=== PATIENT | female | born 1945 | race Two or more races ===

== ENCOUNTER 2020-09-25 17:39 | Inpatient (IN) ==
[2020-09-25 18:49] LABS: Basophils # (auto) 0.02 K/uL (0-0.2); Basophils % (auto) 0.2 %; Eosinophils # (auto) 0.26 K/uL (0-0.5); Eosinophils % (auto) 2.7 %; Immature Granulocytes # (auto) 0.03 K/uL (0.00-0.02); Immature Granulocytes % (auto) 0.3 %; Lymphocytes # (auto) 2.32 K/uL (1.2-3.4); Lymphocytes % (auto) 23.8 %; Mean Corpuscular Hemoglobin 26.4 pg (25-34); Mean Corpuscular Hgb Conc 33.3 g/dL (32-36); Mean Corpuscular Volume 79.1 fL (80-100); Mean Platelet Volume 11.3 fL (7.4-10.4); Monocytes # (auto) 0.79 K/uL (0.11-0.59); Monocytes % (auto) 8.1 %; Neutrophils # (auto) 6.34 K/uL (1.4-6.5); Neutrophils % (auto) 64.9 %; Platelet Count 208 K/uL (130-400); RDW Coefficient of Variation 13.2 % (11.5-14.5); RDW Standard Deviation 37.7 fL (36.4-46.3); Red Blood Count 4.93 M/uL (4.2-5.4); White Blood Count 9.76 K/uL (4.8-10.8)
[2020-09-25 19:16] LABS: Albumin Level 3.2 gm/dl (3.4-5.0); BUN Creatinine Ratio 19.3 (10-20); Bilirubin,Total 0.4 mg/dl (0.2-1); Calcium 5.4 mg/dl (8.5-10.1); Creatinine Clr Calc Pharmacy 73.7 ml/min; Est GFR (African American) 97.9 ml/min; Est GFR (Non-African American) 84.5 ml/min; Globulin 3.3 gm/dl (2.5-4.0); Potassium 3.3 mmol/L (3.5-5.1); Total Protein 6.5 gm/dl (6.4-8.2)
[2020-09-25] MEDS ORDERED: CALCIUM GLUCONATE 10% 2,000 MG in SODIUM CHLORIDE 0.9% 50 ML IV ONE (19:18)
--- NOTE | 2020-09-25 19:35 | Emergency Department Note ---
Impression & Plan Hypocalcemia ED Provider Note INFORMANT: Patient ED PROVIDER(S): Buzz Ann MD CHIEF COMPLAINT: Abnormal labs PLAN: Disposition: Admitted Condition: Good Outpatient prescription management: none Referral: None MEDICAL DECISION MAKING: Patient presented to the emergency department complaining of abnormal labs. She speaks Tajik but her daughter is present and translates well. The patient is without complaints other than some cramping noted in her arms. The twelve-lead ECG reveals a atrial fibrillation with right bundle branch block at 81 bpm. Patient's CBC and chemistry panel were rather unremarkable except she had profound hypocalcemia. I discussed the patient's findings with the pharmacist and 2 g of calcium gluconate and 50 mL of D5W was recommended. This infusion was began. She will need further management in the hospital due to the severe hypocalcemia. [facility] Patient was evaluated in the ER admitted for further management. Triage Nursing notes reviewed and agree them. Vital Signs: reviewed and remarkable for no significant abnormalities Differential diagnosis: Hypocalcemia, infection, dehydration, metabolic abnormality, hypo/hyperglycemia, electrolyte disturbance, anemia, hypoxia, cardiac sources, intracerebral event, toxicologic, neurologic, as well as other pathologies. Diagnostics interpreted by me: ECG: Twelve-lead ECG reveals atrial fibrillation at 81 bpm. Right bundle branch block. No ST elevation or depression. No PVCs or PACs. Normal axis. Cardiac Monitoring: Cardiac monitoring ordered by me: The patient was placed on continuous cardiac monitoring and observed. It revealed atrial fibrillation at 74 beats per minute without ectopy or evidence of dysrhythmia. Imaging studies: Deferred HPI: The patient is a 75 year old female who presents to the Emergency Room with complaints of abnormal labs, low calcium. This started today and is the result of routine postoperative labs. The patient had her thyroid removed in July. She was taking thyroid and calcium supplements. She stopped her calcium supplements because she was having surgery again on her neck 12 days ago. Labs were done and she was found to be profoundly hypocalcemic and sent to the ER. The patient also notes the following associated symptoms, muscle cramps. The patient has been prescribed no new medication for relieving factors. Current pain is rated as 0/10. Pt denies LOC, headache, fevers, chills, diaphoresis, visual changes, surgical site problems or new neck pain, chest pain, breathing difficulties, nausea, vomiting, abdominal pain, back pain, urinary symptoms, numbness, weakness, rash, or other complaints. ROS: See above HPI for pertinent positives & negatives. A total of 10 systems reviewed and were otherwise negative. PAST MEDICAL HISTORY:See Below , hypertension PAST SURGICAL HISTORY:See Below, thyroidectomy FAMILY HISTORY:See Below SOCIAL HISTORY:See Below, lives with family, Tajik speaking HOME MEDICATIONS:See Below ALLERGIES:See Below VITALS:See Below PHYSICAL EXAMINATION: GENERAL: Awake, alert, well-appearing, in no distress HENT: Normocephalic, atraumatic. Oropharynx unremarkable. EYES: Normal conjunctiva. Sclera non-icteric. NECK: Inspection normal. Non-tender. Supple. No nuchal rigidity. FROM. No masses. Surgical site healing well. RESPIRATORY: Clear to auscultation. No wheezes. No rales. Normal respiratory e ffort. CARDIAC: Normal rate. Normal rhythm. No murmurs. No rubs. Extremities warm and well perfused. Pulses equal. No JVD. GI: Soft, non-distended. No tenderness to palpation. No rebound or guarding. No masses. RECTAL: Deferred. MUSCULOSKELETAL: Atraumatic. Chest examination reveals no tenderness. The back is symmetrical on inspection without obvious abnormality. There is no CVA tenderness to palpation. No joint edema. LOWER EXTREMITIES: Calves are equal size bilaterally and non-tender. No edema. No discoloration. NEURO: Normal sensorium. No sensory or motor deficits noted. Negative Chvo stek's sign. SKIN: No rash or jaundice noted. Buzz Ann MD Past Med/Surg History Medical History (Updated 09/25/20 @ 19:32 by Buzz Ann MD) Atrial fibrillation CVA (cerebral vascular accident) 2008 - Right Sided Weakness History of breast cancer Diagnosed 07/26/18 - Right Breast DCIS Hypertension Prediabetes Primary open angle glaucoma (POAG) of both eyes, mild stage Surgical History History of appendectomy 1989 History of hysterectomy 1987 History of left cataract surgery 2016 - Complex History of lumpectomy of right breast 08/17/18 Family History Mother , Passed age 75 of "heart" No problems noted. Father , Passed age 91 of kidney failure No problems noted. Sister No problems noted. Sister No problems noted. Sister No problems noted. Sister No problems noted. Sister No problems noted. Sister No problems noted. Brother , Passed age 35 of "something in neck" not cancer - very sudden No problems noted. Brother , Passed age 20 at war No problems noted. Daughter No problems noted. Daughter No problems noted. Son No problems noted. Son No problems noted. Social History Smoking Status: Never smoker packs per day: 1; Years Smoked: 10; Number of Years Since Quit: 15; Hx Alcohol Use: No Hx Substance Use: No Preferred Language: Tajik Communication Ability: Unable Visual Impairment: Limited Hearing Ability: Normal In Service Education Teacher Required: No Beliefs That Will Affect Care: None marital status: / Current Living Situation: Family current occupational status: retired current occupation: Retired Teacher Feels Safe at Home: Yes caffeine: Yes (1/2 cup of urdu coffee/day ) during the past year weight has: remained stable Dental Care, Regularly: Yes Allergies Allergies Allergy/AdvReac Type Severity Reaction Status Date / Time Sulfa (Sulfonamide AdvReac Severe Anaphylaxis Verified 09/25/20 19:43 Antibiotics) Home Meds Home Medications Medication Instructions Recorded Confirmed cyclobenzaprine 5 mg tablet 5 mg PO TID PRN 09/06/18 09/25/20 latanoprost 0.005 % eye drops 1 drops OPB QPM 09/06/18 09/25/20 anastrozole 1 mg tablet 1 mg PO DAILY 12/27/19 09/25/20 cephalexin 500 mg PO QID 09/25/20 09/25/20 dabigatran etexilate [Pradaxa] 150 mg PO BID 09/25/20 09/25/20 levothyroxine 125 mcg PO QAM 09/25/20 09/25/20 Previous Rx's Medication Instructions Recorded hydrochlorothiazide 25 mg tablet 12.5 mg PO DAILY #90 tab 07/25/20 losartan 25 mg tablet 25 mg PO DAILY #90 tab 09/24/20 Results & Data (ED) Vital Signs Vital Signs - 24 hr 09/25/20 17:47 09/25/20 19:04 09/25/20 21:59 Temperature 37.2 C Temperature Source Oral Pulse Rate 81 Pulse Rate [Apical] 74 Respiratory Rate 20 18 Respiratory Effort / Characteristics Non-Labored Spontaneous Non-Labored Spontaneous Respiratory Depth Normal Normal Respiratory Pattern Regular Blood Pressure 115/63 Blood Pressure [Right Arm] 114/62 Blood Pressure Mean 80 Blood Pressure Mean [Right Arm] 79 Pulse Oximetry 96 97 97 Oxygen Delivery Method Room Air Room Air Room Air Sepsis Recent Fever Within 48 Hours No Sepsis New/Unexplained Change in Mental Status N/A Sepsis Action Taken by Nursing No Action Required Laboratory Data Result diagrams: 09/25/20 18:35 09/25/20 18:35 Lab Results 09/25/20 09/25/20 09/25/20 Range/Units 18:35 18:35 19:26 WBC 9.76 (4.8-10.8) K/uL RBC 4.93 (4.2-5.4) M/uL Hgb 13.0 (12.0-16.0) g/dL Hct 39.0 (37-47) % MCV 79.1 L (80-100) fL MCH 26.4 (25-34) pg MCHC 33.3 (32-36) g/dL RDW Std Deviation 37.7 (36.4-46.3) fL RDW Coeff of Annabella 13.2 (11.5-14.5) % Plt Count 208 (130-400) K/uL MPV 11.3 H (7.4-10.4) fL Immature Gran % (Auto) 0.3 % Neut % (Auto) 64.9 % Lymph % (Auto) 23.8 % [place] % (Auto) 8.1 % Eos % (Auto) 2.7 % Baso % (Auto) 0.2 % Neut # (Auto) 6.34 (1.4-6.5) K/uL Lymph # (Auto) 2.32 (1.2-3.4) K/uL [place] # (Auto) 0.79 H (0.11-0.59) K/uL Eos # (Auto) 0.26 (0-0.5) K/uL Baso # (Auto) 0.02 (0-0.2) K/uL Immature Gran # (Auto) 0.03 H (0.00-0.02) K/uL Sodium 142 (136-145) mmol/L Potassium 3.3 L (3.5-5.1) mmol/L Chloride 105 (98-107) mmol/L Carbon Dioxide 31 (21-32) mmol/L Anion Gap 6.0 (3-11) BUN 14 (7-18) mg/dl Creatinine 0.71 (0.6-1.2) mg/dl Est Cr Clr Drug Dosing 73.7 ml/min Est GFR ( Amer) 97.9 ml/min Est GFR (Non-Af Amer) 84.5 ml/min BUN/Creatinine Ratio 19.3 (10-20) Glucose 114 H (70-99) mg/dl Calcium 5.4 L* (8.5-10.1) mg/dl Total Bilirubin 0.4 (0.2-1) mg/dl AST 20 (15-37) U/L ALT 30 (12-78) U/L Alkaline Phosphatase 70 (45-117) U/L Total Protein 6.5 (6.4-8.2) gm/dl Albumin 3.2 L (3.4-5.0) gm/dl Globulin 3.3 (2.5-4.0) gm/dl Albumin/Globulin Ratio 1.0 (0.9-2) COVID-19 Eval Order Covid19 at [facility] SARS-CoV-2 (PCR) (Negative) 09/25/20 Range/Units 19:26 WBC (4.8-10.8) K/uL RBC (4.2-5.4) M/uL Hgb (12.0-16.0) g/dL Hct (37-47) % MCV (80-100) fL MCH (25-34) pg MCHC (32-36) g/dL RDW Std Deviation (36.4-46.3) fL RDW Coeff of Annabella (11.5-14.5) % Plt Count (130-400) K/uL MPV (7.4-10.4) fL Immature Gran % (Auto) % Neut % (Auto) % Lymph % (Auto) % [place] % (Auto) % Eos % (Auto) % Baso % (Auto) % Neut # (Auto) (1.4-6.5) K/uL Lymph # (Auto) (1.2-3.4) K/uL [place] # (Auto) (0.11-0.59) K/uL Eos # (Auto) (0-0.5) K/uL Baso # (Auto) (0-0.2) K/uL Immature Gran # (Auto) (0.00-0.02) K/uL Sodium (136-145) mmol/L Potassium (3.5-5.1) mmol/L Chloride (98-107) mmol/L Carbon Dioxide (21-32) mmol/L Anion Gap (3-11) BUN (7-18) mg/dl Creatinine (0.6-1.2) mg/dl Est Cr Clr Drug Dosing ml/min Est GFR ( Amer) ml/min Est GFR (Non-Af Amer) ml/min BUN/Creatinine Ratio (10-20) Glucose (70-99) mg/dl Calcium (8.5-10.1) mg/dl Total Bilirubin (0.2-1) mg/dl AST (15-37) U/L ALT (12-78) U/L Alkaline Phosphatase (45-117) U/L Total Protein (6.4-8.2) gm/dl Albumin (3.4-5.0) gm/dl Globulin (2.5-4.0) gm/dl Albumin/Globulin Ratio (0.9-2) COVID-19 Eval Order SARS-CoV-2 (PCR) NEGATIVE (Negative) Administered Medications Discontinued Medications Calcium Gluconate 2,000 mg/ (Sodium Chloride) 70 mls @ 240 mls/hr IV NOW ONE Stop: 09/25/20 19:35 Last Infusion: 09/25/20 20:00 Dose: 0 mls/hr Documented by: [id number] Admin: 09/25/20 19:45 Dose: 240 mls/hr Documented by: [id number] Potassium Chloride (Potassium Chloride Crtab 20 Meq Tabcr) 40 meq PO NOW STA Stop: 09/25/20 20:59 Last Admin: 09/25/20 21:37 Dose: 40 meq Documented by: [id number] Discharge Plan Visit Data Chief Complaint: Abnormal Labs/Diagnostic Testing Stated Complaint: ABNORMAL LABS, LOW CALCIUM ED Provider: Buzz Ann Discharge Problem: Hypocalcemia Patient Disposition: Admitted As Inpatient Discharge Instructions Interventions: ED Discharge Assessment Last Done: 09/25/20 22:02
[2020-09-25] MEDS ORDERED: POTASSIUM CHLORIDE CRTAB 20 MEQ TABCR PO STA (20:58)
[2020-09-25] MEDS ORDERED: SODIUM CHLORIDE 0.9% 1000ML 1,000 ML IV SCH (22:37)
[2020-09-25] MEDS ORDERED: NITROGLYCERIN SL 0.4 MG/TAB TAB SL PRN (22:37)
[2020-09-25] MEDS ORDERED: ACETAMINOPHEN 325 MG TAB PO PRN (22:37)
[2020-09-25] MEDS ORDERED: CYCLOBENZAPRINE HCL 5 MG TAB PO PRN (22:37)
--- NOTE | 2020-09-25 22:50 | History and Physical Report ---
DATE OF ADMISSION: 09/25/2020. CHIEF COMPLAINT: She is from [place], presents with hypocalcemia. HISTORY OF PRESENT ILLNESS: A 75-year-old female with past medical history significant for papillary thyroid cancer, status post thyroidectomy, complex surgery in July of this year, history of prediabetes, chronic atrial fibrillation, hypertension, primary open angle glaucoma, history of CVA, history of breast cancer, who lives with her daughter. Recently is status post extensive surgery for papillary thyroid carcinoma on 08/01/2020 and she had vocal paralysis, status post medialization laryngoplasty on 09/18/2020. or recent surgery she was told to stop her calcium medications. Today for routine followup, her labs were checked and her calcium was very low and she was advised to come to the ER. She has some heaviness and weakness from her previous stroke on the right side. Daughter says she complained of some leg cramps. Otherwise, no symptoms. She is eating and drinking okay, swallowing okay. Denies any chest pain. The patient cannot speak much Tristanian. Daughter is the one who is translating. No complaints of chest pain, no abdominal pain, no nausea, no blurred visions, seeing okay, no runny nose, some cough, no sore throat, ambulating okay. Normal bowel and bladder movements. Afebrile in the ER. Hemodynamically stable. Labs showed a potassium of 3.3 and calcium of 5.4. She was given 2 amps of calcium gluconate. Currently, resting comfortably. ALLERGIES: TO SULFA ANTIBIOTICS. PAST MEDICAL HISTORY: As mentioned above. PAST SURGICAL HISTORY: Appendectomy; breast lesion excision; bronchoscopy; cataract surgery; EGDs; resection of neoplastic extradural lesion; hysterectomy; IR biopsy; laryngoplasty medialization on the right side, laryngoscope; partial mastectomy; radiation treatment, right side; radical thyroid surgery for tumor, bilateral; removal of cataract, revision of esophagus; total abdominal hysterectomy with removal of tubes. MEDICATIONS: Currently the patient is on anastrozole 1 mg p.o. daily, cephalexin, cyclobenzaprine 5 mg p.o. t.i.d. p.r.n. Pradaxa 150 mg p.o. b.i.d., hydrochlorothiazide 12.5 mg p.o. daily, latanoprost 1 drop OPB q.p.m., levothyroxine 125 mcg p.o. a.m., losartan 25 mg p.o. daily. FAMILY HISTORY: Significant for mother has right breast cancer, father has kidney failure. SOCIAL HISTORY: , who lives with daughter. Former smoker, quit in 2005. No alcohol use. No drug use. REVIEW OF SYSTEMS: As per HPI. Rest of the review of systems mostly obtained from the daughter, the patient could not speak Tristanian. PHYSICAL EXAMINATION: GENERAL: The patient is moderately built, not in acute distress. VITAL SIGNS: Temperature 37.2, pulse 81, respiratory rate 20, blood pressure 115/63, oxygen 97% on room air. HEENT: Pupils equal, round and reactive to light. Oral mucosa dry. NECK: No JVD. No neck masses. Surgical site healed well. No erythema, no drainage seen. CARDIOVASCULAR: S1 and S2 heard. Regular rate and rhythm. No murmur, no gallop. RESPIRATORY SYSTEM: Normal AP diameter. No accessory muscle use. No wheezing, no crackles. ABDOMEN: Soft, bowel sounds present, nontender, no distention. CENTRAL NERVOUS SYSTEM: Cranial nerves II-XII grossly intact, nonfocal. EXTREMITIES: No edema, no erythema. LABORATORY DATA: WBC 9.7, hemoglobin 13, hematocrit 39, platelets 1208. Sodium 142, potassium 3.3, chloride 105, bicarbonate 31, BUN 14, creatinine 0.7, serum glucose 114, calcium 5.4, total bilirubin 0.4, AST 20, ALT 30, alkaline phosphatase 70. SARS-CoV-2 PCR negative. ASSESSMENT AND PLAN: This is a 75-year-old female, who presents with hypocalcemia. 1. Hypocalcemia: The patient had extensive thyroidectomy surgery for her papillary thyroid carcinoma in July 2020, was on Calcitrol and calcium supplements But was stopped couple of weeks ago for her recent procedure for vocal cord paralysis. Now comes with hypocalcemia. Except for some leg cramps, no other complaints. EKG showed atrial fibrillation at a rate of 81, prolonged QTc of 508. Otherwise hemodynamically stable. Received 2 amps of calcium gluconate in the ER. We will follow the repeat labs in the night and also in the a.m. and also we start on prior oral supplements of calcitriol and calcium supplements, and consult nephrology in a.m. for further recommendation. Closely monitor in the tele floor. 2. History of papillary thyroid cancer: Status post resection. 3. History of hypothyroidism: On Synthroid. 4. History of atrial fibrillation: On Pradaxa. Not on any rate-limiting medications. We will monitor in the tele floor. 5. Hypertension: On hydrochlorothiazide and losartan. We will monitor the blood pressure. 6. History of breast cancer: Status post resection. On anastrozole. 7. Deep venous thrombosis prophylaxis: On Eliquis. DISPOSITION: Closely monitor in the tele floor. Level 1 full code. PT, OT prior to discharge. Social service to help with discharge planning. Job ID: [id number] [facility] HOSPITALDoroteo
[2020-09-26] MEDS: LATANOPROST 0.005% OP SOLN 2.5 ML BTL OPB SCH ×2 (00:01→09:02)
[2020-09-26 01:46] LABS: BUN Creatinine Ratio 15.8 (10-20); Calcium 6.2 mg/dl (8.5-10.1); Creatinine Clr Calc Pharmacy 69.9 ml/min; Est GFR (African American) 96.3 ml/min; Est GFR (Non-African American) 83.1 ml/min; Magnesium 1.9 mg/dl (1.8-2.4); Potassium 4.3 mmol/L (3.5-5.1)
[2020-09-26] MEDS ORDERED: CALCIUM GLUCONATE 10% 1,000 MG in SODIUM CHLORIDE 0.9% 50 ML IV ONE (05:00)
[2020-09-26] MEDS: LEVOTHYROXINE SODIUM 125 MCG TABLET PO SCH (05:36)
[2020-09-26 06:28] LABS: Basophils # (auto) 0.02 K/uL (0-0.2); Basophils % (auto) 0.2 %; Eosinophils # (auto) 0.29 K/uL (0-0.5); Eosinophils % (auto) 3.2 %; Hematocrit (blood only) 40.2 % (37-47); Immature Granulocytes # (auto) 0.05 K/uL (0.00-0.02); Immature Granulocytes % (auto) 0.6 %; Lymphocytes % (auto) 21.3 %; Mean Corpuscular Hemoglobin 26.4 pg (25-34); Mean Corpuscular Hgb Conc 32.3 g/dL (32-36); Mean Corpuscular Volume 81.5 fL (80-100); Monocytes # (auto) 0.78 K/uL (0.11-0.59); Monocytes % (auto) 8.7 %; Platelet Count 202 K/uL (130-400); RDW Coefficient of Variation 13.3 % (11.5-14.5); RDW Standard Deviation 40.1 fL (36.4-46.3); Red Blood Count 4.93 M/uL (4.2-5.4); White Blood Count 8.94 K/uL (4.8-10.8)
[2020-09-26 07:07] LABS: BUN Creatinine Ratio 16.1 (10-20); Calcium 6.3 mg/dl (8.5-10.1); Creatinine Clr Calc Pharmacy 76.2 ml/min; Est GFR (African American) 101.6 ml/min; Est GFR (Non-African American) 87.6 ml/min; Magnesium 2.1 mg/dl (1.8-2.4); Potassium 4.3 mmol/L (3.5-5.1)
[2020-09-26] MEDS: DABIGATRAN ETEXILATE 75 MG CAP PO SCH ×3 (09:02→21:14)
[2020-09-26] MEDS: hydroCHLOROthiazide 25 MG TAB PO SCH (09:03)
[2020-09-26] MEDS: CALCITRIOL 0.25 MCG CAPSULE PO SCH ×2 (09:03→21:14)
[2020-09-26] MEDS: ANASTROZOLE 1 MG TAB PO SCH (09:03)
[2020-09-26] MEDS: LOSARTAN POTASSIUM 25 MG TAB PO SCH (09:03)
[2020-09-26] MEDS: CALCIUM CARBONATE 500 MG CHEWABLE TAB PO SCH ×4 (09:03→21:14)
--- NOTE | 2020-09-26 09:11 | Nephrology Consultation ---
Date of Consultation September 26, 2020 Assessment & Plan (1) Hypocalcemia: from post surgical hypoparathyroidism based on [facility] labs and hx she has had 3 gm calcium gluconate so far; corrected calcium still low at 6.9 this am Recommend -calcium drip>> calcium gluconate 11 gm in NS (or can use D5 but start w/ NS) for 1 gm elemental calcium per L in gtt. Gtt to start at 50 mL/hr (50 mg elemental calcium per hour); pts typically need 0.5-1.5 mg/kg on this gtt (ordered stat) -monitor calcium q4 hrs STAT and titrate gtt up by 10 mL / hr if Ca unchanged; down by 10 mL/hr if Ca > 9; up by 20 mL by hour if calcium <6; no change in rate for other lab values; call nephro if calcium is <5.5 or >9.5 -target is corrected calcium MAINTAINED > 8 mg/dL; this may take 24-36 hrs w/ gtt or more -continue calcitriol 0.5 mcg bid -confer w/ pharmacy on current calcium carbonate dose >> recommend 4 gm CHUCK MENTAL calcium divided into qid doses >> pls adjust dose w/ them -daily mag, bmp, phos, albumin -daily ECG to look at QTc Care coordinated w/ Dr David Present on Admission?: Yes (2) Hypertension: controlled on losartan, hctz; cont same daily bmp Present on Admission?: Yes (3) Papillary thyroid carcinoma: recommend [place] base with [facility] to update and for guidance given this hospitalization and travel plans Present on Admission?: Yes History of Present Illness Reason for Consultation: hypocalcemia Requesting Physician: Dr Pennington Attending Physician: Roxanne David MD History of Present Illness 75 y/o F whom I'm asked to see for hypocalcemia after she was sent to hospital yesterday by [facility] for low calcium levels noted in [place] clinic. Her PTH yesterday was 7, Ca 6.1; no albumin drawn at [facility]. PMH includes papillothyroid CA s/p surgery 07/2020, w/ [facility]OR on 09/18; and as below. Allergies Allergy/AdvReac Type Severity Reaction Status Date / Time Sulfa (Sulfonamide AdvReac Severe Anaphylaxis Verified 09/25/20 19:43 Antibiotics) Home Medications Medication Instructions Recorded Confirmed Type cyclobenzaprine 5 mg tablet 5 mg PO TID PRN 09/06/18 09/25/20 History latanoprost 0.005 % eye drops 1 drops OPB QPM 09/06/18 09/25/20 History anastrozole 1 mg tablet 1 mg PO DAILY 12/27/19 09/25/20 History hydrochlorothiazide 25 mg tablet 12.5 mg PO DAILY #90 tab 07/25/20 09/25/20 Rx losartan 25 mg tablet 25 mg PO DAILY #90 tab 09/24/20 09/25/20 Rx cephalexin 500 mg PO QID 09/25/20 09/25/20 History dabigatran etexilate [Pradaxa] 150 mg PO BID 09/25/20 09/25/20 History levothyroxine 125 mcg PO QAM 09/25/20 09/25/20 History Patient History Medical History (Updated 09/26/20 @ 10:10 by Maira Guevara MD, PhD) Atrial fibrillation CVA (cerebral vascular accident) 2008 - Right Sided Weakness History of breast cancer Diagnosed 07/26/18 - Right Breast DCIS Hypertension Papillary thyroid carcinoma s/p 07/24 resection path [id number] s/p 09/18 radioactive iodine Prediabetes Primary open angle glaucoma (POAG) of both eyes, mild stage Surgical History (Updated 09/26/20 @ 10:10 by Maira Guevara MD, PhD) History of appendectomy 1989 History of hysterectomy 1987 History of left cataract surgery 2016 - Complex History of lumpectomy of right breast 08/17/18 History of thyroidectomy, total 08/01/20 [facility] total thyroidectomy w/ excision R parapharyngeal /retropharyngeal space lesion, selective R neck dissection, limited R esophageal wall resection Family History Mother , Passed age 75 of "heart" No problems noted. Father , Passed age 91 of kidney failure No problems noted. Sister No problems noted. Sister No problems noted. Sister No problems noted. Sister No problems noted. Sister No problems noted. Sister No problems noted. Brother , Passed age 35 of "something in neck" not cancer - very sudden No problems noted. Brother , Passed age 20 at war No problems noted. Daughter No problems noted. Daughter No problems noted. Son No problems noted. Son No problems noted. Social History Smoking Status: Never smoker packs per day: 1; Years Smoked: 10; Number of Years Since Quit: 15; Hx Alcohol Use: Yes Hx Substance Use: No Preferred Language: Nicaraguan Communication Ability: Unable Visual Impairment: Limited Hearing Ability: Normal Investigative Reporter Required: Yes Beliefs That Will Affect Care: None marital status: / Current Living Situation: Family current occupational status: retired current occupation: Retired Teacher Feels Safe at Home: Yes Safety Concerns: Feels Safe At This Time caffeine: Yes (1/2 cup of danish coffee/day ) during the past year weight has: remained stable Dental Care, Regularly: Yes Assistive Devices: None Review of Systems Review of Systems: All systems reviewed & are unremarkable except as noted in HPI & below Constitutional: dabuther ntoes marked fatigue Musculoskeletal: no change in chronic R sided weakness; denies fasciculations Physical Exam Constitutional: well developed, well nourished and cooperative; no acute distress Eyes: EOM intact bilaterally ENMT: Ears: no external ear abnormality Nose: no external nose abnormality Mouth: + dry oral mucous membranes Neck: no nuchal rigidity Thyroid: + thyroid asymmetrical Respiratory: normal respiratory effort Auscultation: lungs clear to auscultation bilaterally and + diminished lung sounds Cardiovascular: RRR, no murmur, no edema Gastrointestinal (Abdomen): Inspection/Auscultation: normal bowel sounds Percussion/Palpation: abdomen soft; abdomen nontender and no guarding Musculoskeletal: Extremities: + abnormal strength (R sided leg/arm wkness) Skin: no rashes, warm and dry Neurologic: simon, alert, fluent speech, no tremor Psychiatric: Orientation: alert and cooperative Speech: normal rate/rhythm/volume of speech Results & Data ([facility]) Vital Signs (Past 12 Hours) Vital Signs Temp Pulse Pulse Resp BP BP Pulse Ox 09/26/20 07:38 36.7 C 69 20 113/77 95 09/26/20 04:06 36.9 C 74 18 119/79 98 09/25/20 22:29 36.9 C 74 18 114/74 97 09/25/20 21:59 74 18 114/62 97 Laboratory Results 09/26/20 06:12 09/26/20 06:15
[2020-09-26] MEDS ORDERED: CALCIUM GLUCONATE 10% 11,000 MG in SODIUM CHLORIDE 0.9% 1000ML 1,000 ML IV SCH (11:00)
--- NOTE | 2020-09-26 17:09 | Hospitalist Progress Note ---
Date of Service September 26, 2020 Assessment & Plan (1) Hypocalcemia: Status post total thyroid resection on 01 August with excision of right parathyroid we will/retropharyngeal space lesion with selective right neck dissection Has been off of her usual calcium and calcitriol a couple of weeks before the procedure Noted to have hypocalcemia on outpatient labs and was sent into the hospital She has weakness but no other complaints Noted to have bradycardia and with a prolonged QTC of 508 Received intravenous calcium supplement and has been on calcium infusion since this morning Appreciate nephrology input and recommendation Latest calcium level is 7.0 and will monitor every 4 hourly until tomorrow morning Calcium supplement and calcitriol has been restarted Parathormone level and D3 level a low We will supplement D3 (2) Papillary thyroid carcinoma: As above status post total thyroidectomy on 08/01/2020 (3) History of thyroidectomy, total: (4) Atrial fibrillation: History of atrial fibrillation on Pradaxa Rate is controlled Denies any cardiac symptoms Read to have prolonged QT but has been improving with calcium supplement (5) Hypertension: Remains on the upper side History of breast cancer Has been on anastrozole DVT prophylaxis On Pradaxa We will discuss with ENT provider in [place] Admission and Anticipated Discharge Date Admission Date: September 25, 2020 Subjective 09/26/2020 The patient was seen and examined in telemetry unit in presence of the daughter Communicated through the daughter She complains to have some weakness but denies any other symptoms She was sent in from home with abnormal lab with a calcium of less than 6 Review of Systems Review of Systems: All systems reviewed and are unremarkable except as noted below Neurologic: + generalized weakness Physical Exam Physical Exam: Lying in bed comfortably Constitutional: well developed, well nourished and + obese; not ill appearing Eyes: PERRL, conjunctivae normal, anicteric sclerae ENMT: external ear and nose normal, oropharynx normal Neck: trachea midline, no thyromegaly Respiratory: normal respiratory effort, lungs clear to auscultation Cardiovascular: Rate/Rhythm: regular rate and regular rhythm Heart Sounds: no murmur Extremities: no edema Gastrointestinal (Abdomen): Inspection/Auscultation: abdomen not distended Percussion/Palpation: abdomen soft; abdomen nontender Musculoskeletal: No acute arthritis in any joint Neurologic: Alert, awake and oriented x3. No focal sensory and motor deficit appreciated. Lymphatic: no cervical or axillary lymphadenopathy Results & Data Results & Data ([facility]) Vital Signs (Past 12 Hours) Vital Signs Temp Pulse Resp BP Pulse Ox 09/26/20 16:00 36.7 C 81 20 147/87 H 96 09/26/20 11:24 36.8 C 74 18 124/78 95 09/26/20 07:38 36.7 C 69 20 113/77 95 Laboratory Results Short CBC 09/25/20 09/26/20 Range/Units 18:35 06:12 WBC 9.76 8.94 (4.8-10.8) K/uL Hgb 13.0 13.0 (12.0-16.0) g/dL Hct 39.0 40.2 (37-47) % Plt Count 208 202 (130-400) K/uL BMP 09/25/20 09/26/20 09/26/20 18:35 01:00 06:15 Sodium 142 144 142 Potassium 3.3 L 4.3 D 4.3 Chloride 105 107 106 Carbon Dioxide 31 33 H 31 BUN 14 11 11 Creatinine 0.71 0.72 0.66 Glucose 114 H 115 H 107 H Calcium 5.4 L* 6.2 L 6.3 L 09/26/20 12:51 Sodium Potassium Chloride Carbon Dioxide BUN Creatinine Glucose Calcium 7.0 L Liver Function 09/25/20 Range/Units 18:35 Total Bilirubin 0.4 (0.2-1) mg/dl AST 20 (15-37) U/L ALT 30 (12-78) U/L Alkaline Phosphatase 70 (45-117) U/L Albumin 3.2 L (3.4-5.0) gm/dl Medications Administered Current Inpatient Medications Acetaminophen (Acetaminophen 325 Mg Tab) 650 mg PO Q4H PRN PRN Reason: Pain or Fever Stop: 10/25/20 22:36 Anastrozole (Anastrozole 1 Mg Tab) 1 mg PO DAILY SELWYN Stop: 10/26/20 08:59 Last Admin: 09/26/20 09:03 Dose: 1 mg Documented by: Calcitriol (Calcitriol 0.25 Mcg Capsule) 0.5 mcg PO BID SELWYN Stop: 10/26/20 08:59 Last Admin: 09/26/20 09:03 Dose: 0.5 mcg Documented by: Calcium Carbonate (Calcium Carbonate 500 Mg Chewable Tab) 1,500 mg PO QID SELWYN Stop: 10/26/20 08:59 Last Admin: 09/26/20 14:05 Dose: 1,500 mg Documented by: Cyclobenzaprine HCl (Cyclobenzaprine Hcl 5 Mg Tab) 5 mg PO TID PRN PRN Reason: Spasms Stop: 10/25/20 22:36 Dabigatran (Dabigatran Etexilate 75 Mg Cap) 150 mg PO BID SELWYN Stop: 10/25/20 22:36 Last Admin: 09/26/20 09:02 Dose: 150 mg Documented by: Hydrochlorothiazide (Hydrochlorothiazide 25 Mg Tab) 12.5 mg PO DAILY SELWYN Stop: 10/26/20 08:59 Last Admin: 09/26/20 09:03 Dose: 12.5 mg Documented by: Calcium Gluconate 11,000 mg/ (Sodium Chloride) 1,110 mls @ 50 mls/hr IV .[id number] [facility]; Protocol Stop: 10/26/20 10:59 Last Admin: 09/26/20 11:52 Dose: 50 mls/hr Documented by: Latanoprost (Latanoprost 0.005% Op Soln 2.5 Ml Btl) 1 drops OPB QPM [facility] Stop: 10/25/20 22:36 Last Admin: 09/26/20 09:02 Dose: 1 drops Documented by: Levothyroxine Sodium (Levothyroxine Sodium 125 Mcg Tablet) 125 mcg PO DAILYBB [facility] Stop: 10/26/20 06:29 Last Admin: 09/26/20 05:36 Dose: 125 mcg Documented by: Losartan Potassium (Losartan Potassium 25 Mg Tab) 25 mg PO DAILY [facility] Stop: 10/26/20 08:59 Last Admin: 09/26/20 09:03 Dose: 25 mg Documented by: Nitroglycerin (Nitroglycerin Sl 0.4 Mg/Tab Tab) 0.4 mg SL UD PRN PRN Reason: Chest Pain Stop: 10/25/20 22:36
[2020-09-26 18:26] LABS: Appearance Urine Clear (Clear); Bacteria Urine Automated Negative (Negative); Bilirubin Urine Negative (Negative); Blood Urine 2+ (Negative); Color Urine Yellow; Epithelial Cell Urine Auto 0-5 /lpf (0-5); Glucose Urine UA Negative (Negative); Ketones Urine Negative (Negative); Leukocyte Esterase Urine 2+ (Negative); Nitrite Urine Negative (Negative); Protein Urine Negative (Negative); RBC Urine Automated >30 /hpf (0-4); Urobilinogen Urine Negative (Negative); WBC Urine Automated >30 /hpf (0-5)
--- NOTE | 2020-09-27 05:45 | Electrocardiogram Report ---
Test Reason : Blood Pressure : / mmHG Vent. Rate : 081 BPM Atrial Rate : 080 BPM P-R Int : 000 ms QRS Dur : 126 ms QT Int : 438 ms P-R-T Axes : 000 014 -28 degrees QTc Int : 508 ms Atrial fibrillation Right bundle branch block Abnormal ECG No previous ECGs available Confirmed by Mciheal Hargrove ([id number]) on 09/27/2020 5:44:56 AM Referred By: Facnudo Negron Confirmed By:Micheal Hargrove
[2020-09-27] MEDS: LEVOTHYROXINE SODIUM 125 MCG TABLET PO SCH (05:59)
--- NOTE | 2020-09-27 06:00 | Electrocardiogram Report ---
Test Reason : Blood Pressure : / mmHG Vent. Rate : 077 BPM Atrial Rate : 066 BPM P-R Int : 000 ms QRS Dur : 122 ms QT Int : 440 ms P-R-T Axes : 000 014 -31 degrees QTc Int : 497 ms Atrial fibrillation Right bundle branch block Abnormal ECG When compared with ECG of 25-SEP-2020 18:49, No significant change was found Confirmed by Micheal Hargrove ([id number]) on 09/27/2020 5:59:39 AM Referred By: Facundo Negron Confirmed By:Micheal Hargrove
[2020-09-27] MEDS: CALCITRIOL 0.25 MCG CAPSULE PO SCH (08:23)
[2020-09-27] MEDS: hydroCHLOROthiazide 25 MG TAB PO SCH (08:24)
[2020-09-27] MEDS: LOSARTAN POTASSIUM 25 MG TAB PO SCH (08:24)
[2020-09-27] MEDS: DABIGATRAN ETEXILATE 75 MG CAP PO SCH (08:25)
[2020-09-27] MEDS: ANASTROZOLE 1 MG TAB PO SCH (08:25)
[2020-09-27] MEDS: CALCIUM CARBONATE 500 MG CHEWABLE TAB PO SCH ×2 (08:25→13:16)
[2020-09-27 09:34] LABS: Albumin Level 3.1 gm/dl (3.4-5.0); BUN Creatinine Ratio 13.4 (10-20); Calcium 9.8 mg/dl (8.5-10.1); Est GFR (African American) 86.1 ml/min; Est GFR (Non-African American) 74.3 ml/min; Potassium 4.2 mmol/L (3.5-5.1)
[2020-09-27 09:35] LABS: Phosphorus 5.8 mg/dl (2.5-4.9)
--- NOTE | 2020-09-27 11:55 | Hospitalist Progress Note ---
Date of Service September 27, 2020 Assessment & Plan (1) Hypocalcemia: Status post total thyroid resection on 01 August with excision of right parathyroid we will/retropharyngeal space lesion with selective right neck dissection Has been off of her usual calcium and calcitriol a couple of weeks before the procedure Noted to have hypocalcemia on outpatient labs and was sent into the hospital She has weakness but no other complaints Noted to have bradycardia and with a prolonged QTC of 508 Received intravenous calcium supplement and has been on calcium infusion since this morning Appreciate nephrology input and recommendation Latest calcium level is 7.0 and will monitor every 4 hourly until tomorrow morning Calcium supplement and calcitriol has been restarted Parathormone level and D3 level a low Calcium level is 9.8 this morning and the intravenous infusion has been stopped She denies any symptoms Repeat calcium level at 4 PM and the patient was discharged around 5 PM today We will continue with outpatient dose of calcitriol and calcium supplement and make an appointment with PCP within [address] Velez, the ENT specialist in [place]-agrees with the above management Dr. Bee will get her in to see an cafeteria supervisor in [place] sooner (2) Papillary thyroid carcinoma: As above status post total thyroidectomy on 08/01/2020 (3) History of thyroidectomy, total: (4) Atrial fibrillation: History of atrial fibrillation on Pradaxa Rate is controlled Denies any cardiac symptoms Read to have prolonged QT but has been improving with calcium supplement Rate is controlled is on the lower side Continue Pradaxa (5) Hypertension: Remains on the upper side History of breast cancer Has been on anastrozole DVT prophylaxis On Pradaxa Discharge home this evening Admission and Anticipated Discharge Date Admission Date: September 25, 2020 Subjective 09/26/2020 The patient was seen and examined in telemetry unit in presence of the daughter Communicated through the daughter She complains to have some weakness but denies any other symptoms She was sent in from home with abnormal lab with a calcium of less than 6 09/27/2020 The patient was seen and examined in telemetry unit in presence of the daughter She denies any symptoms except minimal weakness Denies any problem with swallowing or neck pain No fever, chills or rigors and no abdominal pain, nausea and or vomiting Review of Systems Review of Systems: All systems reviewed and are unremarkable except as noted below Neurologic: + generalized weakness Physical Exam Physical Exam: Lying in bed comfortably Constitutional: well developed, well nourished and + obese; not ill appearing Eyes: PERRL, conjunctivae normal, anicteric sclerae ENMT: external ear and nose normal, oropharynx normal Neck: trachea midline, no thyromegaly Respiratory: normal respiratory effort, lungs clear to auscultation Cardiovascular: Rate/Rhythm: regular rate and regular rhythm Heart Sounds: no murmur Extremities: no edema Gastrointestinal (Abdomen): Inspection/Auscultation: abdomen not distended Percussion/Palpation: abdomen soft; abdomen nontender Musculoskeletal: No acute arthritis in any joint Neurologic: Alert, awake and oriented x3 Lymphatic: no cervical or axillary lymphadenopathy Results & Data Results & Data ([facility]) Vital Signs (Past 12 Hours) Vital Signs Temp Pulse Resp BP Pulse Ox 09/27/20 10:54 36.4 C L 58 L 18 149/87 H 92 09/27/20 07:00 36.7 C 67 18 130/75 96 09/27/20 04:06 36.7 C 84 17 137/63 94 Laboratory Results BMP 09/26/20 09/26/20 09/26/20 12:51 17:11 21:13 Sodium Potassium Chloride Carbon Dioxide BUN Creatinine Glucose Calcium 7.0 L 8.4 L D 8.9 09/27/20 09/27/20 09/27/20 01:08 06:30 08:52 Sodium Potassium Chloride Carbon Dioxide BUN Creatinine Glucose Calcium 9.2 9.1 9.4 09/27/20 08:52 Sodium 141 Potassium 4.2 Chloride 105 Carbon Dioxide 29 BUN 11 Creatinine 0.79 Glucose 121 H Calcium 9.8 Liver Function 09/27/20 Range/Units 08:52 Albumin 3.1 L (3.4-5.0) gm/dl Urine 09/26/20 Range/Units 17:30 Urine Color Yellow Urine Appearance Clear (Clear) Urine pH 7.0 (4.5-7.5) Ur Specific [place] 1.010 (1.000-1.030) Urine Protein Negative (Negative) Urine Glucose (UA) Negative (Negative) Medications Administered Current Inpatient Medications Acetaminophen (Acetaminophen 325 Mg Tab) 650 mg PO Q4H PRN PRN Reason: Pain or Fever Stop: 10/25/20 22:36 Anastrozole (Anastrozole 1 Mg Tab) 1 mg PO DAILY SELWYN Stop: 10/26/20 08:59 Last Admin: 09/27/20 08:25 Dose: 1 mg Documented by: Calcitriol (Calcitriol 0.25 Mcg Capsule) 0.5 mcg PO BID SELWYN Stop: 10/26/20 08:59 Last Admin: 09/27/20 08:23 Dose: 0.5 mcg Documented by: Calcium Carbonate (Calcium Carbonate 500 Mg Chewable Tab) 1,500 mg PO QID SELWYN Stop: 10/26/20 08:59 Last Admin: 09/27/20 08:25 Dose: 1,500 mg Documented by: Cyclobenzaprine HCl (Cyclobenzaprine Hcl 5 Mg Tab) 5 mg PO TID PRN PRN Reason: Spasms Stop: 10/25/20 22:36 Last Admin: 09/27/20 08:23 Dose: 5 mg Documented by: Dabigatran (Dabigatran Etexilate 75 Mg Cap) 150 mg PO BID SELWYN Stop: 10/25/20 22:36 Last Admin: 09/27/20 08:25 Dose: 150 mg Documented by: Hydrochlorothiazide (Hydrochlorothiazide 25 Mg Tab) 12.5 mg PO DAILY SELWYN Stop: 10/26/20 08:59 Last Admin: 09/27/20 08:24 Dose: 12.5 mg Documented by: Calcium Gluconate 11,000 mg/ (Sodium Chloride) 1,110 mls @ 40 mls/hr IV .Q24H [facility]; Protocol Stop: 10/26/20 10:59 Last Infusion: 09/27/20 10:41 Dose: 0 mls/hr Documented by: Latanoprost (Latanoprost 0.005% Op Soln 2.5 Ml Btl) 1 drops OPB QPM SELWYN Stop: 10/25/20 22:36 Last Admin: 09/26/20 09:02 Dose: 1 drops Documented by: Levothyroxine Sodium (Levothyroxine Sodium 125 Mcg Tablet) 125 mcg PO DAILYBB SELWYN Stop: 10/26/20 06:29 Last Admin: 09/27/20 05:59 Dose: 125 mcg Documented by: Losartan Potassium (Losartan Potassium 25 Mg Tab) 25 mg PO DAILY SELWYN Stop: 10/26/20 08:59 Last Admin: 09/27/20 08:24 Dose: 25 mg Documented by: Nitroglycerin (Nitroglycerin Sl 0.4 Mg/Tab Tab) 0.4 mg SL UD PRN PRN Reason: Chest Pain Stop: 10/25/20 22:36
--- NOTE | 2020-09-27 13:29 | Nephrology Progress Note ---
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 Pt to leave for [place] next month; did d/w [place] strong recommendation to have f/u labs/calcium management there and explained that our group cannot manage this issue out of this geographic area -stop gtt -monitor ca through day today DISCHARGE RECS (summary updated) -if levels remain wnl, could be d/c home on calcium carbonate 1500 mg TID (not qid) and rocaltrol 0.5 mcg bid -[facility] nephrology will order calcium labs for October 08 -needs follow up calcium labs in [place] Care coordinated w/ Dr David (2) Hypertension: controlled on losartan, hctz; cont same daily bmp (3) Papillary thyroid carcinoma: recommend [place] with [facility] to update and for guidance given this hospitalization and travel plans Admission and Anticipated Discharge Date Admission Date: September 25, 2020 Subjective no interval events; calcium normalized since last evening Review of Systems Review of Systems: All systems reviewed & are unremarkable except as noted in Subjective Physical Exam Constitutional: well developed, well nourished and cooperative; no acute distress Eyes: EOM intact bilaterally ENMT: Ears: no external ear abnormality Nose: no external nose abnormality Mouth: + dry oral mucous membranes Neck: no nuchal rigidity Thyroid: + thyroid asymmetrical Respiratory: normal respiratory effort Auscultation: lungs clear to auscultation bilaterally and + diminished lung sounds Cardiovascular: RRR, no murmur, no edema Gastrointestinal (Abdomen): Inspection/Auscultation: normal bowel sounds Percussion/Palpation: abdomen soft; abdomen nontender and no guarding Musculoskeletal: Extremities: + abnormal strength (R sided leg/arm wkness) Skin: no rashes, warm and dry Psychiatric: Orientation: alert and cooperative Speech: normal rate/rhythm/volume of speech Results & Data ([facility]) Vital Signs (Past 12 Hours) Vital Signs Temp Pulse Resp BP Pulse Ox 09/27/20 10:54 36.4 C L 58 L 18 149/87 H 92 09/27/20 07:00 36.7 C 67 18 130/75 96 09/27/20 04:06 36.7 C 84 17 137/63 94 Laboratory Results 09/26/20 06:12 09/27/20 08:52
[2020-09-27 14:14] VITALS: TEMP 98.2; O2SAT 96
[2020-09-27 14:16] VITALS: BP 119/79
--- NOTE | 2020-09-27 14:35 | Electrocardiogram Report ---
Test Reason : Blood Pressure : / mmHG Vent. Rate : 072 BPM Atrial Rate : 072 BPM P-R Int : 000 ms QRS Dur : 124 ms QT Int : 420 ms P-R-T Axes : 000 014 -20 degrees QTc Int : 459 ms Atrial fibrillation Right bundle branch block Abnormal ECG When compared with ECG of 26-SEP-2020 05:52, No significant change was found Confirmed by Jair Gates ([id number]) on 09/27/2020 2:35:12 PM Referred By: Facundo Negron Confirmed By:Jair Gates
[2020-09-27 16:03] VITALS: PULSE 86
--- NOTE | 2020-09-27 16:33 | Discharge Summary ---
Date of Service September 27, 2020 Admission HPI Per Admitting Provider DATE OF ADMISSION: 09/25/2020. CHIEF COMPLAINT: She is from [place], presents with hypocalcemia. HISTORY OF PRESENT ILLNESS: A 75-year-old female with past medical history significant for papillary thyroid cancer, status post thyroidectomy, complex surgery in July of this year, history of prediabetes, chronic atrial fibrillation, hypertension, primary open angle glaucoma, history of CVA, history of breast cancer, who lives with her daughter. Recently is status post extensive surgery for papillary thyroid carcinoma on 08/01/2020 and she had vocal paralysis, status post medialization laryngoplasty on 09/18/2020. or recent surgery she was told to stop her calcium medications. Today for routine followup, her labs were checked and her calcium was very low and she was advised to come to the ER. She has some heaviness and weakness from her previous stroke on the right side. Daughter says she complained of some leg cramps. Otherwise, no symptoms. She is eating and drinking okay, swallowing okay. Denies any chest pain. The patient cannot speak much Slovak. Daughter is the one who is translating. No complaints of chest pain, no abdominal pain, no nausea, no blurred visions, seeing okay, no runny nose, some cough, no sore throat, ambulating okay. Normal bowel and bladder movements. Afebrile in the ER. Hemodynamically stable. Labs showed a potassium of 3.3 and calcium of 5.4. She was given 2 amps of calcium gluconate. Currently, resting comfortably. Admission Exam Per Admitting Provider GENERAL: The patient is moderately built, not in acute distress. VITAL SIGNS: Temperature 37.2, pulse 81, respiratory rate 20, blood pressure 115/63, oxygen 97% on room air. HEENT: Pupils equal, round and reactive to light. Oral mucosa dry. NECK: No JVD. No neck masses. Surgical site healed well. No erythema, no drainage seen. CARDIOVASCULAR: S1 and S2 heard. Regular rate and rhythm. No murmur, no gallop. RESPIRATORY SYSTEM: Normal AP diameter. No accessory muscle use. No wheezing, no crackles. ABDOMEN: Soft, bowel sounds present, nontender, no distention. CENTRAL NERVOUS SYSTEM: Cranial nerves II-XII grossly intact, nonfocal. EXTREMITIES: No edema, no erythema. Principal Diagnosis Severe hypocalcemia, status post total thyroid resection on 08/01/2020 with excision of right parathyroid, papillary thyroid carcinoma, atrial fibrillation on Pradaxa, hypertension Discharge Exam Constitutional well developed, well nourished and + obese; not ill appearing Eyes PERRL, conjunctivae normal, anicteric sclerae ENMT external ear and nose normal, oropharynx normal Neck trachea midline, no thyromegaly Respiratory normal respiratory effort, lungs clear to auscultation Cardiovascular Rate/Rhythm: regular rate and regular rhythm Heart Sounds: no murmur Extremities: no edema Gastrointestinal (Abdomen) Inspection/Auscultation: abdomen not distended Percussion/Palpation: abdomen soft; abdomen nontender Lymphatic no cervical or axillary lymphadenopathy Discharge Data Allergies Allergy/AdvReac Type Severity Reaction Status Date / Time Sulfa (Sulfonamide AdvReac Severe Anaphylaxis Verified 09/25/20 19:43 Antibiotics) Consultations 09/25/20 21:26 ED Decision to Admit Stat 09/26/20 08:00 Consult Nephrology Routine Hospital Course (1) Hypocalcemia: Status post total thyroid resection on 01 August with excision of right parathyroid we will/retropharyngeal space lesion with selective right neck dissection Has been off of her usual calcium and calcitriol a couple of weeks before the procedure Noted to have hypocalcemia on outpatient labs and was sent into the hospital She has weakness but no other complaints Noted to have bradycardia and with a prolonged QTC of 508 Received intravenous calcium supplement and has been on calcium infusion since this morning Appreciate nephrology input and recommendation Latest calcium level is 7.0 and will monitor every 4 hourly until tomorrow morning Calcium supplement and calcitriol has been restarted Parathormone level and D3 level a low Calcium level is 9.8 this morning and the intravenous infusion has been stopped She denies any symptoms Repeat calcium level at 4 PM and the patient was discharged around 5 PM today We will continue with outpatient dose of calcitriol and calcium supplement and make an appointment with PCP within [address] Velez, the ENT specialist in [place]-agrees with the above management Dr. Bee will get her in to see an tennis racket repairer in [place] sooner (2) Papillary thyroid carcinoma: As above status post total thyroidectomy on 08/01/2020 (3) History of thyroidectomy, total: (4) Atrial fibrillation: History of atrial fibrillation on Pradaxa Rate is controlled Denies any cardiac symptoms Read to have prolonged QT but has been improving with calcium supplement Rate is controlled is on the lower side Continue Pradaxa (5) Hypertension: Remains on the upper side History of breast cancer Has been on anastrozole DVT prophylaxis On Pradaxa Discharge home this evening Total Time Total Time Spent Total Time Spent (In Minutes): 40 minutes Total Time Includes: Examination of the Patient, Discharge Planning, Medication Reconciliation and Communication With Other Providers Discharge Plan Discharge Items Patient Disposition: Home - Self-Care Reason For Visit: ABNORMAL LABS Discharge Diagnosis: Severe hypocalcemia, status post total thyroid resection on 08/01/2020 with excision of right parathyroid, papillary thyroid carcinoma, atrial fibrillation on Pradaxa, hypertension Condition on Discharge: Good Activity: Resume your previous activity Non-emergency contact: Primary Care Provider Call non-emergency contact if: you have any medication questions and your symptoms worsen Follow-up/Referrals: Facundo Negron MD [Primary Care Provider] - (Date & Time 10/04/2020 11:00 AM Provider Facundo Negron MD Department Family Practice [facility] ) Olena Al, MSN, [employer], [employer] [Outside Practitioners] - (Date & Time 10/01/2020 2:00 PM Provider KARELY Mott Department Hematology/Oncology [facility] ) Diet: Heart Healthy Addtl Attending Provider Instructions: Please take precautions to avoid fall Try to drink more fluid Take your medications as advised Have regular follow-up of with your doctor even in [facility] with check of calcium level Addtl Operations Examiner Provider Instructions: -discharge home on calcium carbonate 1500 mg three times daily (not 4) and rocaltrol 0.5 mcg twice daily -[facility] nephrology will order calcium labs for October 08 -needs follow up calcium labs in [facility] to be managed by local providers there Pending Studies at Discharge: No Stand-Alone Forms: My Replenish, Smoking Cessation Medications and DC Order Prescriptions: New calcium carbonate [Tums] 200 mg calcium (500 mg) Tablet,Chewable 1,500 mg PO TID 30 Days Qty: 675 RF: 0 calcitriol 0.5 mcg capsule 0.5 mcg PO BID Qty: 60 RF: 0 Continued cyclobenzaprine 5 mg tablet 5 mg PO TID PRN (Reason: Spasms) RF: 0 latanoprost [Xalatan] 0.005 % drops 1 drops OPB QPM RF: 0 hydrochlorothiazide 25 mg tablet 12.5 mg PO DAILY Qty: 90 RF: 3 losartan 25 mg tablet 25 mg PO DAILY Qty: 90 RF: 3 anastrozole 1 mg tablet 1 mg PO DAILY RF: 0 Pradaxa 150 mg capsule 150 mg PO BID RF: 0 levothyroxine 125 mcg tablet 125 mcg PO QAM RF: 0 cephalexin 500 mg capsule 500 mg PO QID RF: 0 Discharge Orders: Discharge Order (Routine); Ordered 09/27/20 Ordered By: Roxanne David Admission Data Admit Date/Time: 09/25/20 20:56 Attending Provider: Roxanne David Admit Provider: Segundo Pennington Primary Care Provider: Facundo Negron Other Providers: Segundo Pennington ; Maira Guevara Other Interventions: Discharge Summary Assessment (RN) Last Done: 09/27/20 14:15
== END 2020-09-27 16:05 | disposition home or self-care (01) | DRG 641 ==
LOC: ED 17:39 → 2S 20:56 → SUATTDRO 20:56 → 2S 22:02

== ENCOUNTER 2021-04-10 19:19 | Inpatient (IN) ==
[2021-04-10] MEDS ORDERED: ACETAMINOPHEN 500 MG TAB PO STA (19:52)
[2021-04-10] MEDS ORDERED: ACETAMINOPHEN 500 MG TAB ONE (19:53)
[2021-04-10 20:32] LABS: Basophils # (auto) 0.02 K/uL (0-0.2); Basophils % (auto) 0.1 %; Eosinophils # (auto) 0.04 K/uL (0-0.5); Eosinophils % (auto) 0.2 %; Hematocrit (blood only) 43.4 % (37-47); Hemoglobin 14.6 g/dL (12.0-16.0); Immature Granulocytes # (auto) 0.03 K/uL (0.00-0.02); Immature Granulocytes % (auto) 0.2 %; Lymphocytes # (auto) 1.05 K/uL (1.2-3.4); Lymphocytes % (auto) 5.7 %; Mean Corpuscular Hgb Conc 33.6 g/dL (32-36); Mean Corpuscular Volume 80.2 fL (80-100); Mean Platelet Volume 11.4 fL (7.4-10.4); Monocytes # (auto) 0.64 K/uL (0.11-0.59); Monocytes % (auto) 3.5 %; Neutrophils # (auto) 16.64 K/uL (1.4-6.5); Neutrophils % (auto) 90.3 %; Platelet Count 157 K/uL (130-400); RDW Standard Deviation 38.1 fL (36.4-46.3); Red Blood Count 5.41 M/uL (4.2-5.4); White Blood Count 18.42 K/uL (4.8-10.8)
[2021-04-10 20:47] LABS: Alanine Aminotransferase 33 (12-78); Albumin Level 3.6 gm/dl (3.4-5.0); Aspartate Aminotransferase 24 U/L (15-37); BUN Creatinine Ratio 18.9 (10-20); Blood Urea Nitrogen 20 mg/dl (7-18); Calcium 8.8 mg/dl (8.5-10.1); Carbon Dioxide 27 mmol/L (21-32); Chloride 102 mmol/L (98-107); Est GFR (African American) 60.3 ml/min; Glucose 162 mg/dl (70-99); Lipase 131 U/L (73-393); Potassium 3.3 mmol/L (3.5-5.1); Sodium 137 mmol/L (136-145)
[2021-04-10 20:50] LABS: Albumin Globulin Ratio 0.9 (0.9-2); Alkaline Phosphatase 64 U/L (45-117); Bilirubin,Total 0.6 mg/dl (0.2-1); Globulin 4.1 gm/dl (2.5-4.0); Total Protein 7.7 gm/dl (6.4-8.2)
[2021-04-10] MEDS ORDERED: ONDANSETRON INJ 2 MG/ML 2 ML VIAL IV STA (20:52)
[2021-04-10] MEDS ORDERED: ACETAMINOPHEN 325 MG TAB PO STA (20:52)
--- NOTE | 2021-04-10 20:55 | Emergency Department Note ---
History of Present Illness General Chief complaint: Vomiting Stated complaint: COUGH, FEVER, VOMIT, DIARRHEA Time Seen by Provider: 04/10/21 20:45 Source: patient and family Limitations: language barrier History of Present Illness Provider complaint: Vomiting and diarrhea Onset (ago): day(s) Location: abdomen Pain Consistency: + intermittent Quality: + other (Vomiting and diarrhea) Relieved By: + none Associated symptoms: + cough, + fever/chills, + malaise and + nausea/vomiting; no chest pain or no shortness of breath This is a 75-year-old female who presents with her daughter who is translating with her with vomiting and diarrhea. She has had symptoms for about a day. She is unable to keep anything down. She has had copious diarrhea and vomiting without blood. She feels worse when she tries to eat or drink anything. She has had a fever and sore throat and cough for the past 2 days. She was diagnosed with COVID 2 days ago. Even though she had a positive diagnosis of COVID she was placed on Augmentin by her PCP. She has been taking this. She complains of upper abdominal pain. She has had no loss of taste or smell, chest pain, shortness of breath or urinary symptoms. She is vaccinated for COVID-19 without a booster. Home Medications Medication Instructions Recorded Confirmed Type cyclobenzaprine 5 mg tablet 5 mg PO TID PRN 09/06/18 04/10/21 History latanoprost 0.005 % eye drops 1 drops OPB QPM 09/06/18 04/10/21 History (Xalatan) anastrozole 1 mg tablet 1 mg PO DAILY 12/27/19 04/10/21 History hydrochlorothiazide 25 mg tablet 12.5 mg PO DAILY #90 tab 07/25/20 04/10/21 Rx losartan 25 mg tablet 25 mg PO DAILY #90 tab 09/24/20 04/10/21 Rx dabigatran etexilate 150 mg 150 mg PO BID 09/25/20 04/10/21 History capsule (Pradaxa) levothyroxine 125 mcg tablet 125 mcg PO QAM 09/25/20 04/10/21 History calcitriol 0.5 mcg capsule 0.5 mcg PO BID #60 cap 09/27/20 04/10/21 Rx amoxicillin 875 mg-potassium 1 tab PO Q12 04/10/21 04/10/21 History clavulanate 125 mg tablet Allergies Allergy/AdvReac Type Severity Reaction Status Date / Time Sulfa (Sulfonamide AdvReac Severe Anaphylaxis Verified 04/10/21 20:52 Antibiotics) Past Med/Surg History Medical History Atrial fibrillation CVA (cerebral vascular accident) 2008 - Right Sided Weakness History of breast cancer Diagnosed 07/26/18 - Right Breast DCIS Hypertension Papillary thyroid carcinoma s/p 07/24 resection path [id number] s/p 09/18 radioactive iodine Prediabetes Primary open angle glaucoma (POAG) of both eyes, mild stage Surgical History History of appendectomy 1989 History of hysterectomy 1987 History of left cataract surgery 2016 - Complex History of lumpectomy of right breast 08/17/18 History of thyroidectomy, total 08/01/20 [facility] [place] w/ excision R parapharyngeal /retropharyngeal space lesion, selective R neck dissection, limited R esophageal wall resection Family History Mother , Passed age 75 of "heart" No problems noted. Father , Passed age 91 of kidney failure No problems noted. Sister No problems noted. Sister No problems noted. Sister No problems noted. Sister No problems noted. Sister No problems noted. Sister No problems noted. Brother , Passed age 35 of "something in neck" not cancer - very sudden No problems noted. Brother , Passed age 20 at war No problems noted. Daughter No problems noted. Daughter No problems noted. Son No problems noted. Son No problems noted. Social History Smoking Status: Never smoker packs per day: 1; Years Smoked: 10; Number of Years Since Quit: 15; Hx Alcohol Use: Yes Hx Substance Use: No Preferred Language: Nepali Communication Ability: Effective Visual Impairment: Limited Hearing Ability: Normal Fermenter Required: Yes Beliefs That Will Affect Care: None marital status: / Current Living Situation: Family current occupational status: retired current occupation: Retired Teacher Feels Safe at Home: Yes caffeine: Yes (1/2 cup of kinyarwanda coffee/day ) during the past year weight has: remained stable Dental Care, Regularly: Yes Assistive Devices: None Review of Systems See HPI for pertinent positives & negatives. and A total of 10 systems reviewed and were otherwise negative Physical Exam Vital Signs Vital Signs - 24 hr 04/10/21 19:47 04/10/21 21:49 04/10/21 23:10 Temperature 39.5 C H Temperature Source Oral Pulse Rate 94 H Pulse Rate [Finger] 92 H 103 H Respiratory Rate 16 Blood Pressure 131/55 L Blood Pressure [Right Arm] 128/69 109/51 L Blood Pressure Mean 80 Blood Pressure Mean [Right Arm] 88 70 Blood Pressure Position Sitting Pulse Oximetry 92 95 93 Oxygen Delivery Method Room Air Room Air Room Air Sepsis Recent Fever Within 48 Hours No Sepsis New/Unexplained Change in Mental Status No Sepsis Action Taken by Nursing No Action Required Constitutional: Vital signs reviewed. Eyes: Pupils are equal round reactive to light. Conjunctiva are noninjected. ENT: Pharynx is clear without erythema or exudate. Mucous membranes are dry. Neck supple without meningeal signs. Respiratory: Clear to auscultation bilaterally. Breath sounds are equal bilaterally. Cardiovascular: Irregularly irregular rhythm. Normal rate. GI: Soft, nondistended with epigastric tenderness. No guarding. Bowel sounds are present. Musculoskeletal: No peripheral edema. No lower extremity tenderness. Integumentary: No cyanosis. or jaundice. Neurological: The patient is awake and alert. No focal deficits. Psychiatric: Normal affect. Course Administered Medications Sodium Chloride (Nss) 500 mls @ 80 mls/hr IV .[id number] [facility] Stop: 05/10/21 20:59 Last Admin: 04/10/21 21:28 Dose: 80 mls/hr Documented by: [id number] Discontinued Medications Acetaminophen (Acetaminophen 500 Mg Tab) 1,000 mg PO NOW STA Stop: 04/10/21 19:53 Last Admin: 04/10/21 19:55 Dose: 1,000 mg Documented by: [id number] Acetaminophen (Acetaminophen 500 Mg Tab) Confirm Administered Dose 1,000 mg .ROUTE .STK-MED ONE Stop: 04/10/21 19:54 Last Admin: 04/10/21 19:55 Dose: Not Given Documented by: [id number] Acetaminophen (Acetaminophen 325 Mg Tab) 650 mg PO NOW STA Stop: 04/10/21 20:53 Last Admin: 04/10/21 21:28 Dose: 650 mg Documented by: [id number] Ondansetron HCl (Ondansetron Inj 2 Mg/Ml 2 Ml Vial) 4 mg IV NOW STA Stop: 04/10/21 20:53 Last Admin: 04/10/21 21:28 Dose: 4 mg Documented by: [id number] Medical Decision Making Differential Diagnosis COVID-19, pneumonia, bowel obstruction, gastroenteritis, foodborne illness, sepsis, SUZETTE, dehydration Medical Records Attestation: I reviewed the patient's medical records. I did perform a limited focused review of portions of the patient's old chart on the electronic medical record. The patient has had no recent pertinent visits to this hospital. She was admitted in September of last year for hypocalcemia. Home Medications Current Medication List: was personally reviewed by me Laboratory Data Attestation: I reviewed the patient's lab results. Result diagrams: 04/10/21 21:22 04/10/21 21:22 Lab Results 04/10/21 04/10/21 04/10/21 Range/Units 21:19 21:19 21:22 WBC 18.42 H (4.8-10.8) K/uL RBC 5.41 H (4.2-5.4) M/uL Hgb 14.6 (12.0-16.0) g/dL Hct 43.4 (37-47) % MCV 80.2 (80-100) fL MCH 27.0 (25-34) pg MCHC 33.6 (32-36) g/dL RDW Std Deviation 38.1 (36.4-46.3) fL RDW Coeff of Annabella 13.0 (11.5-14.5) % Plt Count 157 (130-400) K/uL MPV 11.4 H (7.4-10.4) fL Immature Gran % (Auto) 0.2 % Neut % (Auto) 90.3 % Lymph % (Auto) 5.7 % Meigs % (Auto) 3.5 % Eos % (Auto) 0.2 % Baso % (Auto) 0.1 % Neut # (Auto) 16.64 H (1.4-6.5) K/uL Lymph # (Auto) 1.05 L (1.2-3.4) K/uL Meigs # (Auto) 0.64 H (0.11-0.59) K/uL Eos # (Auto) 0.04 (0-0.5) K/uL Baso # (Auto) 0.02 (0-0.2) K/uL Immature Gran # (Auto) 0.03 H (0.00-0.02) K/uL Sodium (136-145) mmol/L Potassium (3.5-5.1) mmol/L Chloride (98-107) mmol/L Carbon Dioxide (21-32) mmol/L Anion Gap (3-11) BUN (7-18) mg/dl Creatinine (0.6-1.2) mg/dl Est Cr Clr Drug Dosing Est GFR ( Amer) ml/min Est GFR (Non-Af Amer) ml/min BUN/Creatinine Ratio (10-20) Glucose (70-99) mg/dl Lactate 2.0 (0.4-2.0) mmol/L Calcium (8.5-10.1) mg/dl Total Bilirubin (0.2-1) mg/dl AST (15-37) U/L ALT (12-78) Alkaline Phosphatase (45-117) U/L Troponin I (0-0.045) ng/ml C-Reactive Protein (0-0.29) mg/dl Total Protein (6.4-8.2) gm/dl Albumin (3.4-5.0) gm/dl Globulin (2.5-4.0) gm/dl Albumin/Globulin Ratio (0.9-2) Lipase (73-393) U/L Procalcitonin 0.55 H (0-0.5) ng/ml 04/10/21 Range/Units 21:22 WBC (4.8-10.8) K/uL RBC (4.2-5.4) M/uL Hgb (12.0-16.0) g/dL Hct (37-47) % MCV (80-100) fL MCH (25-34) pg MCHC (32-36) g/dL RDW Std Deviation (36.4-46.3) fL RDW Coeff of Annabella (11.5-14.5) % Plt Count (130-400) K/uL MPV (7.4-10.4) fL Immature Gran % (Auto) % Neut % (Auto) % Lymph % (Auto) % Meigs % (Auto) % Eos % (Auto) % Baso % (Auto) % Neut # (Auto) (1.4-6.5) K/uL Lymph # (Auto) (1.2-3.4) K/uL Meigs # (Auto) (0.11-0.59) K/uL Eos # (Auto) (0-0.5) K/uL Baso # (Auto) (0-0.2) K/uL Immature Gran # (Auto) (0.00-0.02) K/uL Sodium 137 (136-145) mmol/L Potassium 3.3 L (3.5-5.1) mmol/L Chloride 102 (98-107) mmol/L Carbon Dioxide 27 (21-32) mmol/L Anion Gap 8.0 (3-11) BUN 20 H (7-18) mg/dl Creatinine 1.06 (0.6-1.2) mg/dl Est Cr Clr Drug Dosing Not Reportable Est GFR ( Amer) 60.3 ml/min Est GFR (Non-Af Amer) 52.0 ml/min BUN/Creatinine Ratio 18.9 (10-20) Glucose 162 H (70-99) mg/dl Lactate (0.4-2.0) mmol/L Calcium 8.8 (8.5-10.1) mg/dl Total Bilirubin 0.6 (0.2-1) mg/dl AST 24 (15-37) U/L ALT 33 (12-78) Alkaline Phosphatase 64 (45-117) U/L Troponin I < 0.015 (0-0.045) ng/ml C-Reactive Protein 1.38 H (0-0.29) mg/dl Total Protein 7.7 (6.4-8.2) gm/dl Albumin 3.6 (3.4-5.0) gm/dl Globulin 4.1 H (2.5-4.0) gm/dl Albumin/Globulin Ratio 0.9 (0.9-2) Lipase 131 (73-393) U/L Procalcitonin (0-0.5) ng/ml Imaging Data Radiologist's Impression: Chest X-Ray 04/10/21 20:52 XR chest 1V portable CLINICAL HISTORY: covid eval for pna TECHNIQUE: Single frontal radiograph of the chest was obtained. Comparison: None available at the time of this dictation. FINDINGS: No lines and tubes are seen. Cardiomegaly is noted. The lungs are clear. No evidence of pleural effusion or pneumothorax. IMPRESSION: No acute abnormality and in particular no evidence of pneumonia. ACT 112: Negative or not required by law. Electronically signed by: Eugene Richter M.D. 04/10/2021 9:30 PM [facility] Patient: NICOLE DAVIS (Female) : 49 Status: ER Date: 04/10/21 21:46 Room #: History: vomitting eval for obstruction Slices: [id number] Priors: Tech: Oh Amado @ [id number] Exams: CT ABDOMEN & PELVIS Without Contrast Contrast: Accession Numbers: [id number] Referring Physician: REFERRED SELF Preliminary Findings Only See Final Report For Complete Findings CT ABDOMEN & PELVIS Without Contrast: No evidence of bowel obstruction. Mild wall thickening of the transverse colon raises the possibility of mild colitis. No significant pericolonic fat stranding or free fluid visualized in the abdomen or pelvis. No radiodense gallstones or gallbladder distention. Pancreas, spleen, adrenal glands and liver are grossly unremarkable. No hydronephrosis. Radiologist: Norma Granado M.D. Study ready at 21:47 and initial results transmitted at 22:05 ECG Data Attestation: I personally reviewed and interpreted this ECG as follows: Indication: + abdominal pain Rate (beats per minute): 84 Rhythm: + atrial fibrillation ECG Intervals/blocks: + Right Bundle branch block ECG [place]: + Normal ECG ST segments: + Nonspecific ST abnormalities ECG Findings: + Other (Diffuse biphasic T waves) Comparison ECG Date: from (September 27, 2020) Change: no significant change MDM Narrative I did evaluate the patient as noted above. She is presenting with vomiting and diarrhea today. She is unable to eat anything. She does not feel well. She was diagnosed with COVID-19 2 days ago. She denies any chest pain or shortness of breath. She does complain of upper abdominal pain where she has some tenderness in the epigastric region. IV access was established. I did treat the patient with normal saline and Zofran IV. She was also given Tylenol for her fever. I did place an order for continuous cardiac monitoring. The monitor showed atrial fibrillation at a rate of 92 bpm. I did order and personally review the patient's 12-lead EKG as described above. I did order and personally reviewed the images of the patient's chest x-ray as described above. I did order a urine analysis. I did order and review the patient's blood work as noted in the electronic medical record. Her white blood cell count is 18.4. Hemoglobin is 14.6. Platelet count is 157. Electrolytes demonstrate a hypokalemia at 3.3. Creatinine is 1 with a BUN of 20. LFTs are unremarkable. Lipase is 131. Lactate is not elevated. C-reactive protein is 1.38. I did order a CT of the abdomen and pelvis. I did review the images myself as well as the radiology report as described above. She does appear to have a colitis over the transverse colon where she is tender. I did discuss the test results with the patient and her daughter. She will be hospitalized for further care and evaluation. I did discuss the case with the hospitalist and manager of case. Impression & Plan Acute colitis, Acute dehydration, Hypokalemia, COVID-19, Vomiting and diarrhea Discharge Plan Visit Data Chief Complaint: Vomiting Stated Complaint: COUGH, FEVER, VOMIT, DIARRHEA ED Provider: Danish Ceron Discharge Problem: Acute colitis, Acute dehydration, Hypokalemia, COVID-19, Vomiting and diarrhea Patient Disposition: Being Evaluated by Hospitalist Forms Stand Alone Forms: My [facility] Prescriptions Prescriptions: No Action cyclobenzaprine 5 mg tablet 5 mg PO TID PRN (Reason: Spasms) RF: 0 latanoprost [Xalatan] 0.005 % drops 1 drops OPB QPM RF: 0 hydrochlorothiazide 25 mg tablet 12.5 mg PO DAILY Qty: 90 RF: 3 losartan 25 mg tablet 25 mg PO DAILY Qty: 90 RF: 3 anastrozole 1 mg tablet 1 mg PO DAILY RF: 0 amoxicillin-pot clavulanate 875-125 mg tablet 1 tab PO Q12 RF: 0 Pradaxa 150 mg capsule 150 mg PO BID RF: 0 levothyroxine 125 mcg tablet 125 mcg PO QAM RF: 0 calcitriol 0.5 mcg capsule 0.5 mcg PO BID Qty: 60 RF: 0 Referrals Referrals: Facundo Negron MD [Primary Care Provider] -
[2021-04-10] MEDS ORDERED: SODIUM CHLORIDE 0.9% 500 ML IV SCH (21:00)
--- NOTE | 2021-04-10 21:32 | XRay Report ---
XR chest 1V portable CLINICAL HISTORY: covid eval for pna TECHNIQUE: Single frontal radiograph of the chest was obtained. Comparison: None available at the time of this dictation. FINDINGS: No lines and tubes are seen. Cardiomegaly is noted. The lungs are clear. No evidence of pleural effus ion or pneumothorax. IMPRESSION: No acute abnormality and in particular no evidence of pneumonia. ACT 112: Negative or not required by law. Electronically signed by: Eugene Richter M.D. 04/10/2021 9:30 PM
[2021-04-10 22:07] LABS: C Reactive Protein 1.38 mg/dl (0-0.29); Troponin I < 0.015 ng/ml (0-0.045)
[2021-04-11] MEDS ORDERED: POTASSIUM CHLORIDE / WTR 10 MEQ/100 ML PLCT IV STA (00:45)
[2021-04-11] MEDS ORDERED: SODIUM CHLORIDE 0.9% 500 ML IV SCH (01:45)
[2021-04-11] MEDS: D5W AND NSS 1,000 ML IV SCH ×2 (01:50→11:15)
[2021-04-11 02:56] LABS: Influenza A virus by PCR Negative (Neg); Influenza B virus by PCR Negative (Neg); RSV by PCR Negative (Neg); SARS CoV2 RNA(COVID-19) InHosp NEGATIVE (Negative)
[2021-04-11] MEDS ORDERED: CYCLOBENZAPRINE HCL 5 MG TAB PO PRN (05:20)
[2021-04-11] MEDS ORDERED: ACETAMINOPHEN 325 MG TAB PO PRN (05:20)
[2021-04-11] MEDS ORDERED: ONDANSETRON INJ 2 MG/ML 2 ML VIAL IV PRN (05:20)
[2021-04-11] MEDS ORDERED: PIPERACILL/TAZOBAC CONSULT ACTIVE PRN (05:20)
[2021-04-11] MEDS ORDERED: PATIENT'S HEIGHT AND/OR WEIGHT NEEDED SCH (05:30)
[2021-04-11] MEDS ORDERED: PIPERACILLIN/TAZOBACTAM 4.5 GM in DEXTROSE 5% 100 ML IV ONE (06:00)
[2021-04-11] MEDS: LEVOTHYROXINE SODIUM 125 MCG TABLET PO SCH (06:46)
--- NOTE | 2021-04-11 07:25 | CT Scan Report ---
CT SCAN OF THE ABDOMEN AND PELVIS WITHOUT IV CONTRAST CLINICAL HISTORY: Vomiting. COMPARISON STUDY: No priors. TECHNIQUE: CT scan of the abdomen and pelvis is performed from the lung bases to the proximal femora. Images are reviewed in the axial, sagittal, and coronal planes. IV contrast was not administered for this examination. Note that the examination was performed in suboptimal fashion without oral and IV contrast. A dose lowering technique was utilized adhering to the principles of ALARA. CT DOSE: 505.34 mGy.cm FINDINGS: Lung bases: The heart is mildly enlarged and without pericardial effusion. Evaluation of the lung bas es is degraded by motion artifact. No airspace consolidation or pleural effusion is identified. Liver: The unenhanced liver is normal in size, contour, and attenuation. There is no intrahepatic veronica iary ductal dilatation. Gallbladder: Unremarkable. Spleen: Normal in size and attenuation. There are scattered capsular calcifications. Pancreas: The unenhanced pancreas is grossly unremarkable. Adrenal glands: Unremarkable. Kidneys: The unenhanced kidneys demonstrate cortical atrophy and are without hydronephrosis. There ar e no renal calculi identified. There is no evidence of contour deforming renal mass lesion. A 1.6 cm renal sinus cyst is seen on the right. Abdominal vasculature: The abdominal aorta is normal in course and caliber noting moderate atheroscle rotic calcification. Bowel: There is no bowel obstruction. There is underdistention versus mild wall thickening of the col on. This extends from the ascending colon to the descending colon. The appendix is not visualized. Peritoneum: There is no intraperitoneal free air or abdominal ascites. There is a fat-containing umbi lical hernia. Lymphadenopathy: None. Pelvic viscera: The bladder is normal as visualized. The uterus is surgically absent. No adnexal lesi on is seen. Skeletal structures: The skeletal structures are osteopenic. There is moderate lumbosacral spondylosi s. No lytic or blastic lesions are seen. Arthritic change is seen in the hips. IMPRESSION: 1. Suboptimal examination without oral and IV contrast. There is also motion artifact. 2. Question underdistention orbits: versus a mild nonspecific colitis. Clinical correlation will be r equired. 3. No bowel obstruction is identified. ACT 112: Negative or not required by law. Electronically signed by: Adalberto Salas M.D. 04/11/2021 7:24 AM
--- NOTE | 2021-04-11 08:01 | History and Physical Report ---
DATE OF ADMISSION: 04/11/2021. CHIEF COMPLAINT: Nausea, vomiting, diarrhea. HISTORY OF PRESENT ILLNESS: A 75-year-old female with past medical history significant for chronic atrial fibrillation; prediabetes; hypertension; primary open angle glaucoma of both eyes, mild stage; muscular rigidity and spasms, progressive; history of CVA; history of breast cancer; history of thyroid cancer, status post complete thyroidectomy, who lives with her son, was brought in because of nausea, vomiting, and diarrhea. The patient seems to have seen the family doctor a couple of days ago and at that time complained of nasal drip and cough. No fever, no chills. Going on for 2 weeks and for the last 2 days, has some fever, and productive cough with sputum and she was prescribed Augmentin for possible bronchitis and acute pharyngitis. Respiratory panel was ordered and the results showed coronavirus SARS-CoV-2 by PCR was negative, but coronavirus OC43 was positive. Rest of the panel was negative, but today in the morning, she started with nausea, vomiting and diarrhea. She could not eat anything. She is feeling weak and tired, spiking temperature and was brought to the hospital here. The patient is from [place], cannot speak much Sami. Daughter is in the room, who is translating. The patient has lot of sore throat, some cough and nasal drainage. No chest pain, no shortness of breath, a lot of nausea, vomiting and some abdominal discomfort and diarrhea. Normal bladder movements. No swelling in the legs. Currently, the patient is sleeping. All the history was got from the daughter.Daughter supposed to stay with the patient. ALLERGIES: SULFA ANTIBIOTICS. PAST MEDICAL HISTORY: As mentioned above. PAST SURGICAL HISTORY: Appendectomy, breast biopsy, bronchoscopy, cataract surgery, esophagoscopy, right resection of a neoplastic extradural lesion, hysterectomy, laryngoplasty, laryngoscopy, radiation treatment, thyroidectomy with radical neck dissection on 08/01/2020, total abdominal hysterectomy with removal of tubes, partial right mastectomy in August 2018. MEDICATIONS: The patient is on Augmentin 1 tablet p.o. b.i.d., anastrozole 1 mg p.o. daily, calcitriol 0.5 mcg p.o. b.i.d., cyclobenzaprine 5 mg p.o. t.i.d. p.r.n., hydrochlorothiazide 12.5 mg p.o. daily, latanoprost eye drops ophthalmic in p.m., levothyroxine 125 mcg p.o. a.m., losartan 25 mg p.o. daily, Pradaxa 150 mg p.o. b.i.d. FAMILY HISTORY: Significant for mother had breast cancer, father has kidney disease. SOCIAL HISTORY: Former smoker, quit in 2005, currently lives with son. No alcohol, no drug use. REVIEW OF SYSTEMS: As per HPI. Could not get complete review of systems as the patient is from [facility] and daughter is helping with H and P.. PHYSICAL EXAMINATION: GENERAL: The patient is drowsy, but arousable, not in acute distress. VITAL SIGNS: Temperature 39.5, pulse 88, respiratory rate 16, blood pressure 128/69, oxygen 92% on room air. HEENT: Pupils equal, round and reactive to light. Oral mucosa dry. NECK: No JVD, no neck masses. CARDIOVASCULAR: S1 and S2 heard. Regular rate and rhythm. No murmur, no gallop. RESPIRATORY SYSTEM: Normal AP diameter. No accessory muscle use. No wheezing, no crackles. ABDOMEN: Soft, bowel sounds present. Mild abdominal discomfort present. No distention. CENTRAL NERVOUS SYSTEM: Alert and awake. Obeys simple commands. Moves extremities. EXTREMITIES: No edema, no erythema. LABORATORY DATA: WBC 18.4, hemoglobin 14.6, hematocrit 43.4, platelets 157. Sodium 137, potassium 3.3, chloride 102, bicarbonate 27, BUN 20, creatinine 1.06, serum glucose 162. Lactate 2, calcium 8.8, total bilirubin 0.6, AST 24, ALT 33, alkaline phosphatase 64. Troponin I less than 0.015. C-reactive protein 1.38, lipase 131. Procalcitonin 0.55. SARS-CoV-2 negative. IMAGING DATA: Chest x-ray, no acute abnormality and no evidence of pneumonia. CT of the abdomen and pelvis with preliminary report shows no evidence of bowel obstruction, mild wall thickening of the transverse colon, raises the possibility of mild colitis. No hydronephrosis. EKG: Atrial fibrillation at a rate of 84, right bundle-branch block, T-wave inversion in inferior leads and lateral leads. ASSESSMENT AND PLAN: This is a 75-year-old female who presents with lot of nausea, vomiting, diarrhea. 1. Nausea, vomiting, diarrhea: Colitis on preliminary ct abdomen. There is question of COVID, but her COVID rapid test is negative and as per the daughter, the patient had booster shot 03/24/2021. As per reviewing the Epic chart, her respiratory panel showed for coronavirus OC43 positive, but not for SARS-CoV-2, but we will double check. Treat as gastroenteritis for now with IV fluids. Also she has leukocytosis. Check for stool for C. diff and stool cultures and follow the final report of the CAT scan. If any concern, will consult GI in the a.m. Will keep on clear liquid diet and closely monitor in the medical floor. Will empirically start on Zosyn. The patient also has some runny nose and cough going on for a couple of weeks, probably bronchitis. Antibiotics as above. Will monitor. 2. History of atrial fibrillation: Not on any rate control medication, but on Pradaxa, which will be continued. 3. Hypertension: Holding hydrochlorothiazide and losartan as the pressure is lower side for now. Restart when the pressure comes up. 4. Glaucoma: Continue home meds 5. History of hyperthyroidism: Status post complete thyroidectomy. On calcitriol. Monitor the calcium levels. 6. History of breast cancer: Partial right mastectomy, on anastrozole. 7. Deep venous thrombosis prophylaxis. Currently on Pradaxa. DISPOSITION: Closely monitor in the medical floor. PT/OT prior to discharge. Social service to help with discharge planning. Job ID: [id number] [facility] CENTERDoroteo
[2021-04-11 08:02] LABS: Hematocrit (blood only) 40.6 % (37-47); Hemoglobin 13.3 g/dL (12.0-16.0); Mean Corpuscular Hemoglobin 26.2 pg (25-34); Mean Corpuscular Hgb Conc 32.8 g/dL (32-36); Mean Corpuscular Volume 80.1 fL (80-100); Mean Platelet Volume 11.7 fL (7.4-10.4); Platelet Count 143 K/uL (130-400); RDW Coefficient of Variation 13.1 % (11.5-14.5); RDW Standard Deviation 38.2 fL (36.4-46.3); Red Blood Count 5.07 M/uL (4.2-5.4); White Blood Count 23.35 K/uL (4.8-10.8)
[2021-04-11 08:25] LABS: Basophils # (auto) 0.01 K/uL (0-0.2); Immature Granulocytes # (auto) 0.11 K/uL (0.00-0.02); Immature Granulocytes % (auto) 0.5 %; Lymphocytes % (auto) 6.9 %; Monocytes # (auto) 1.38 K/uL (0.11-0.59); Monocytes % (auto) 5.9 %; Neutrophils # (auto) 20.25 K/uL (1.4-6.5); Neutrophils % (auto) 86.7 %
[2021-04-11 08:39] LABS: BUN Creatinine Ratio 21.4 (10-20); Calcium 7.4 mg/dl (8.5-10.1); Creatinine Clr Calc Pharmacy 40.2 ml/min; Est GFR (African American) 49.4 ml/min; Est GFR (Non-African American) 42.6 ml/min; Magnesium 1.6 mg/dl (1.8-2.4); Potassium 3.8 mmol/L (3.5-5.1)
[2021-04-11] MEDS: DABIGATRAN ETEXILATE 75 MG CAP PO SCH ×3 (09:09→22:03)
[2021-04-11] MEDS: ANASTROZOLE 1 MG TAB PO SCH (09:09)
[2021-04-11] MEDS: CALCITRIOL 0.25 MCG CAPSULE PO SCH ×2 (09:10→21:57)
[2021-04-11] MEDS: LOSARTAN POTASSIUM 25 MG TAB PO SCH ×2 (09:10→09:12)
[2021-04-11] MEDS: MAGNESIUM SULFATE / D5W 1 GM/100 ML BAG IV SCH ×2 (10:51→13:01)
[2021-04-11] MEDS: DOXYCYCLINE HYCLATE 100 MG CAP PO SCH ×2 (11:10→21:59)
[2021-04-11] MEDS: NSS + 20MEQ KCL 20 MEQ/1,000 ML BAG IV SCH ×2 (11:10→19:46)
[2021-04-11] MEDS ORDERED: PIPERACILLIN/TAZOBACTAM 3.375 GM in DEXTROSE 5% 100 ML IV SCH (12:00)
[2021-04-11 12:27] LABS: Adenovirus F 40/41 PCR Not Detected (NotDetected); Astrovirus PCR Not Detected (NotDetected); Campylobacter PCR Not Detected (NotDetected); Clostridium diff Toxin A/B PCR Not Detected (NotDetected); Cryptosporidium PCR Not Detected (NotDetected); Cyclospora cayetanensis PCR Not Detected (NotDetected); Entamoeba histolytica PCR Not Detected (NotDetected); Enteroaggregative E.coli(EAEC) Not Detected (NotDetected); Enteropathogenic E.coli (EPEC) Not Detected (NotDetected); Enterotoxigenic E.coli (ETEC) Not Detected (NotDetected); Giardia lamblia PCR Not Detected (NotDetected); Norovirus GI/GII PCR Not Detected (NotDetected); Plesiomonas shigelloides PCR Not Detected (NotDetected); Rotavirus A PCR Not Detected (NotDetected); Salmonella PCR Not Detected (NotDetected); Sapovirus PCR Not Detected (NotDetected); Shiga-like Toxin E.coli (STEC) Not Detected (NotDetected); Vibrio cholerae PCR Not Detected (NotDetected); Vibrio species PCR Not Detected (NotDetected); Yersinia enterocolitica PCR Not Detected (NotDetected)
[2021-04-11 12:31] LABS: Shigella/Enteroinvasive E.coli DETECTED (NotDetected)
[2021-04-11] MEDS ORDERED: PROMETHAZINE HCL 12.5 MG in SODIUM CHLORIDE 0.9% 50 ML IV PRN (12:53)
[2021-04-11] MEDS: LEVALBUTEROL 1.25MG/0.5ML NEB NEB SCH ×3 (13:43→19:38)
[2021-04-11] MEDS ORDERED: ALUMINUM/MAGNESIUM/SIMETH (MAALOX MAX) 30 ML UDC PO PRN (15:05)
--- NOTE | 2021-04-11 16:13 | Electrocardiogram Report ---
Test Reason : Blood Pressure : / mmHG Vent. Rate : 084 BPM Atrial Rate : 075 BPM P-R Int : 000 ms QRS Dur : 138 ms QT Int : 406 ms P-R-T Axes : 000 058 -55 degrees QTc Int : 479 ms Atrial fibrillation Right bundle branch block T wave abnormality, consider inferolateral ischemia Abnormal ECG When compared with ECG of 27-SEP-2020 05:56, T wave inversion more evident in Inferior leads T wave inversion now evident in Lateral leads Confirmed by Jair Gates ([id number]) on 04/11/2021 4:13:21 PM Referred By: REFERRED SELF Confirmed By:Jair Gates
[2021-04-11] MEDS: CIPROFLOXACIN 500 MG TAB PO SCH ×2 (17:12→22:00)
[2021-04-11] MEDS: PANTOprazole 40 MG in SYRINGE 0 ML IV SCH (17:12)
--- NOTE | 2021-04-11 17:26 | Hospitalist Progress Note ---
Date of Service April 11, 2021 Assessment & Plan (1) Acute colitis: Plan: ASSESSMENT AND PLAN: This is a 75-year-old female who presents with lot of nausea, vomiting, diarrhea. 1. Nausea, vomiting, diarrhea secondary to Shigella/EIEC Colitis - Colitis on preliminary ct abdomen. - stool PCR (+) Shigella/EIEC sensitivities sent to [place] [facility] - Cipro BID PO Day 1/ IV fluids clear liquids Coronavirus 0C43 Acute Bronchitis - Covid screen PCR negative - repeat on Wednesday, airborne Isolation for now - on empiric Doxycycline for possible Acute Bacterial Bronchitis Nebs Incentive Spirometer - monitor closely - 2. History of atrial fibrillation: Not on any rate control medication, but on Pradaxa, which will be continued. 3. Hypertension: Holding hydrochlorothiazide hold Losartan 4. Glaucoma: Continue home meds 5. History of hyperthyroidism: Status post complete thyroidectomy. On calcitriol. Monitor the calcium levels. 6. History of breast cancer: Partial right mastectomy, on anastrozole. 7. Deep venous thrombosis prophylaxis. Currently on Pradaxa. DISPOSITION: Closely monitor in the medical floor. PT/OT prior to discharge. Social service to help with discharge planning. plan of care discussed with patient and her daughter in detail and at length all questions answered they are understanding, agreeable, comfortable with the plan of care Admission and Anticipated Discharge Date Admission Date: April 11, 2021 Subjective ff up for diarrhea, fever, etc seen with patient's daughter at the bedside- providing further information, interpretation feels about the same 1 diarrhea this morning, still has generalized discomfort in the abdomen, and nausea no dyspnea, cough, chest pain no headache, dizziness no other symptoms Review of Systems Review of Systems: all noted and negative except for above Physical Exam Physical Exam: General- oriented x 3, not in distress, speaks in sentences with no effort or accessory muscle use appears somewhat weak Head- atraumatic Eyes- PERRL, EOMI, anicteric ENT- (+) dry oral mucosa Neck- supple, no JVD, no adenopathy, no thyromegaly; carotids +2/2, no bruits appreciated Lungs- clear to auscultation bilaterally, no rales/wheezes Heart- normal rate, regular rhythm; no murmur, no gallop, no rub appreciated Abdomen- normal bowel sounds, nondistended, soft,mild tenderness all over Extremities- no pretibial edema, no calf tenderness; peripheral pulses intact Neuro- alert, oriented x 3; CN 2-12 grossly intact; motor 5/5 bilaterally;sensation 100% on all extremities; no other gross focal neurologic deficits Skin- warm & dry Results & Data Results & Data ([facility]) Vital Signs (Past 12 Hours) Vital Signs Temp Pulse Resp BP Pulse Ox 04/11/21 14:46 36.6 C 76 16 123/73 95 04/11/21 13:47 68 18 90 04/11/21 05:23 36.9 C 77 16 101/64 98 all noted and reviewed including below
[2021-04-11] MEDS: LATANOPROST 0.005% OP SOLN 2.5 ML BTL OPB SCH (21:54)
[2021-04-11] MEDS: CALCIUM CARBONATE 1250MG TAB PO SCH (22:00)
[2021-04-12] MEDS: LEVALBUTEROL 1.25MG/0.5ML NEB NEB SCH ×2 (01:08→08:17)
[2021-04-12] MEDS: NSS + 20MEQ KCL 20 MEQ/1,000 ML BAG IV SCH ×3 (03:31→20:32)
[2021-04-12 05:44] LABS: Basophils # (auto) 0.01 K/uL (0-0.2); Basophils % (auto) 0.1 %; Eosinophils # (auto) 0.06 K/uL (0-0.5); Eosinophils % (auto) 0.4 %; Hematocrit (blood only) 35.4 % (37-47); Hemoglobin 11.5 g/dL (12.0-16.0); Immature Granulocytes # (auto) 0.02 K/uL (0.00-0.02); Immature Granulocytes % (auto) 0.1 %; Lymphocytes # (auto) 2.89 K/uL (1.2-3.4); Lymphocytes % (auto) 19.8 %; Mean Corpuscular Hemoglobin 26.3 pg (25-34); Mean Corpuscular Hgb Conc 32.5 g/dL (32-36); Mean Platelet Volume 11.4 fL (7.4-10.4); Monocytes # (auto) 0.84 K/uL (0.11-0.59); Monocytes % (auto) 5.7 %; Neutrophils % (auto) 73.9 %; Platelet Count 117 K/uL (130-400); RDW Coefficient of Variation 13.5 % (11.5-14.5); RDW Standard Deviation 40.5 fL (36.4-46.3); Red Blood Count 4.37 M/uL (4.2-5.4); White Blood Count 14.62 K/uL (4.8-10.8)
[2021-04-12] MEDS: LEVOTHYROXINE SODIUM 125 MCG TABLET PO SCH (06:16)
[2021-04-12 06:17] LABS: BUN Creatinine Ratio 25.8 (10-20); Calcium 6.8 mg/dl (8.5-10.1); Creatinine Clr Calc Pharmacy 57.8 ml/min; Est GFR (African American) 76.6 ml/min; Est GFR (Non-African American) 66.1 ml/min; Magnesium 1.9 mg/dl (1.8-2.4); Potassium 3.6 mmol/L (3.5-5.1)
[2021-04-12] MEDS: ANASTROZOLE 1 MG TAB PO SCH (09:22)
[2021-04-12] MEDS: LOSARTAN POTASSIUM 25 MG TAB PO SCH (09:24)
[2021-04-12] MEDS: CALCITRIOL 0.25 MCG CAPSULE PO SCH ×2 (09:24→20:35)
[2021-04-12] MEDS: DOXYCYCLINE HYCLATE 100 MG CAP PO SCH ×2 (09:25→20:37)
[2021-04-12] MEDS: DABIGATRAN ETEXILATE 75 MG CAP PO SCH ×2 (09:25→20:38)
[2021-04-12] MEDS: CALCIUM CARBONATE 1250MG TAB PO SCH ×3 (09:27→20:36)
[2021-04-12] MEDS ORDERED: SODIUM CHLORIDE 0.65% NA SOLN 45 ML (OCEAN) PRN (09:48)
[2021-04-12] MEDS: CIPROFLOXACIN 500 MG TAB PO SCH ×2 (10:17→20:36)
[2021-04-12] MEDS: PANTOprazole 40 MG in SYRINGE 0 ML IV SCH (11:12)
--- NOTE | 2021-04-12 12:55 | Hospitalist Progress Note ---
Date of Service April 12, 2021 Assessment & Plan (1) Acute colitis: Plan: ASSESSMENT AND PLAN: This is a 75-year-old female who presents with lot of nausea, vomiting, diarrhea. 1. Nausea, vomiting, diarrhea secondary to Shigella/EIEC Colitis - Colitis on preliminary ct abdomen. - stool PCR (+) Shigella/EIEC sensitivities sent to [place] [facility] - Cipro BID PO Day 2/3 IV fluids clear liquids--> advance to soft Coronavirus 0C43 Acute Bronchitis - Covid screen PCR negative - repeat on Wednesday, airborne Isolation for now - on empiric Doxycycline for possible Acute Bacterial Bronchitis Nebs Incentive Spirometer - monitor closely - overall better off oxygen Low back pain - likely muscular etiology - lidoderm patch, warm compress 2. History of atrial fibrillation: Not on any rate control medication, but on Pradaxa, which will be continued. 3. Hypertension: Holding hydrochlorothiazide hold Losartan 4. Glaucoma: Continue home meds 5. History of hyperthyroidism: Status post complete thyroidectomy. On calcitri ol. Monitor the calcium levels. -- Ionized Ca 9 Oscal -- monitor 6. History of breast cancer: Partial right mastectomy, on anastrozole. 7. Deep venous thrombosis prophylaxis. Currently on Pradaxa. DISPOSITION: Closely monitor in the medical floor. PT/OT prior to discharge. Social service to help with discharge planning. plan of care discussed with patient and her daughter in detail and at length all questions answered they are understanding, agreeable, comfortable with the plan of care Admission and Anticipated Discharge Date Admission Date: April 11, 2021 Subjective ff up for shigella colitis, etc seen resting in bed, alert, not in distress brighter, comfortable daughter at bedside assisting with interpretation nausea resolved, requesting to advance diet abdominal pain also much better 1 soft stool this AM no dyspnea, cough, palpitations, dizziness, chest pain has low back pain, worse with movement no other symptoms Review of Systems Review of Systems: all noted and negative except for above Physical Exam Physical Exam: General- oriented x 3, not in distress, speaks in sentences with no effort or accessory muscle use Eyes- anicteric Neck- no JVD Lungs- clear breath sounds bilaterally, no rales/wheezes Heart- normal rate, regular rhythm; no murmurs Abdomen- normal bowel sounds, nondistended, soft, nontender Extremities- no pretibial edema, no calf tenderness Back- tenderness to the lower back, no edema/hematoma, etc Neuro- alert, oriented x 3; no gross focal neurologic deficits Skin- warm & dry Results & Data Results & Data ([facility]) Vital Signs (Past 12 Hours) Vital Signs Temp Pulse Resp BP Pulse Ox 04/12/21 09:18 86 112/77 04/12/21 08:17 65 16 94 04/12/21 07:37 36.4 C L 75 16 140/85 94 04/12/21 01:08 69 16 94 all noted and reviewed including below
[2021-04-12] MEDS: LIDOCAINE 5% 1 PATCH TD SCH (13:19)
[2021-04-12] MEDS: LATANOPROST 0.005% OP SOLN 2.5 ML BTL OPB SCH (20:38)
[2021-04-13] MEDS: LEVOTHYROXINE SODIUM 125 MCG TABLET PO SCH (05:46)
[2021-04-13 06:43] LABS: Basophils # (auto) 0.02 K/uL (0-0.2); Basophils % (auto) 0.2 %; Eosinophils # (auto) 0.17 K/uL (0-0.5); Eosinophils % (auto) 1.5 %; Hemoglobin 11.9 g/dL (12.0-16.0); Immature Granulocytes # (auto) 0.02 K/uL (0.00-0.02); Immature Granulocytes % (auto) 0.2 %; Lymphocytes # (auto) 3.14 K/uL (1.2-3.4); Lymphocytes % (auto) 27.1 %; Mean Corpuscular Hemoglobin 26.1 pg (25-34); Mean Corpuscular Hgb Conc 32.2 g/dL (32-36); Mean Corpuscular Volume 81.1 fL (80-100); Mean Platelet Volume 11.9 fL (7.4-10.4); Monocytes # (auto) 0.48 K/uL (0.11-0.59); Monocytes % (auto) 4.1 %; Neutrophils # (auto) 7.77 K/uL (1.4-6.5); Neutrophils % (auto) 66.9 %; Platelet Count 123 K/uL (130-400); RDW Coefficient of Variation 13.8 % (11.5-14.5); RDW Standard Deviation 41.3 fL (36.4-46.3); Red Blood Count 4.56 M/uL (4.2-5.4)
[2021-04-13 07:03] LABS: BUN Creatinine Ratio 22.5 (10-20); Calcium 6.3 mg/dl (8.5-10.1); Creatinine Clr Calc Pharmacy 58.5 ml/min; Est GFR (African American) 77.7 ml/min
[2021-04-13] MEDS: NSS + 20MEQ KCL 20 MEQ/1,000 ML BAG IV SCH (09:22)
[2021-04-13] MEDS: CALCIUM CARBONATE 1250MG TAB PO SCH (09:24)
[2021-04-13] MEDS: CALCITRIOL 0.25 MCG CAPSULE PO SCH ×2 (09:24→20:46)
[2021-04-13] MEDS: DABIGATRAN ETEXILATE 75 MG CAP PO SCH ×2 (09:25→20:47)
[2021-04-13] MEDS: DOXYCYCLINE HYCLATE 100 MG CAP PO SCH ×2 (09:25→20:47)
[2021-04-13] MEDS: CIPROFLOXACIN 500 MG TAB PO SCH ×2 (09:25→20:47)
[2021-04-13] MEDS: ANASTROZOLE 1 MG TAB PO SCH (09:29)
[2021-04-13] MEDS: LIDOCAINE 5% 1 PATCH TD SCH (09:29)
--- NOTE | 2021-04-13 11:22 | Nephrology Consultation ---
Date of Consultation April 13, 2021 Assessment & Plan (1) Hypocalcemia: from post surgical hypoparathyroidism historically and now w/ diminished ability to take po; can be challenging to replenish calcium stores for such pts -will give calcium gluconate IV 3 gm > may need calcium gtt -continue calcitriol current dose; stopped po Ca supplement for now d/t challenges swallowing/taking pills as rx'd; advised daughter not to give anymore calcium carbonate from their personal supply ->>>>defer to primary service to monitor bmp (given issues w/ K as well recently) q6-8 hrs > may need to consider PICC or midline; start after calcium gluconate complete ->>>>pls order daily mag, bmp, phos, albumin -daily ECG to look at QTc > so ordered including today; QTc on admission was 479ms -she should be on supplier quality specialist until calcium levels improve/stabilize -given swallowing issues/inability to take po meds and relatively recent cancer hx/surgery >> low threshold for speech eval Care coordinated with Dr. Tinsley History of Present Illness Reason for Consultation: hypocalcemia Requesting Physician: Dr Tinsley Attending Physician: Marco Tinsley MD History of Present Illness 75-year-old female whom I am asked to evaluate for hypocalcemia was admitted April 11 with colitis after presenting with nausea vomiting and diarrhea and fever to 39.5. The patient is of [place] origin and does not speak much Hungarian. Her daughter has been translating and is in the room for this interview. Her GI symptoms were present for 2 or 3 days prior to admission: She skipped several doses of her calcium and calcitriol prior to admission. Of note one of her PCP's colleagues lowered her calcium dosing as an outpatient just prior to admission due to relative hypercalcemia late last month On presentation was 8.8, with slow downtrend ever since. Today it is 6.3, with ionized calcium 0.83. Past medical history includes chronic atrial fibrillation, hypertension, history of stroke, history of right breast status post 2019 radiation on anastrazole and papillary thyroid carcinoma status post complete thyroidectomy w/ selective R neck/ parapharyngeal/partial esophageal dissection July 2020 as below She also has a history of postsurgical hypoparathyroidism for which she was admitted here September 2020-med hx updated. At baseline she has no chronic ambulatory dysfun ction. She had a recent course of Augmentin for possible bronchitis and acute pharyngitis. Respiratory panel remarkable for negative SARS Covid 2 by PCR but positive OC43 coronavirus. She had f/u w/ENT in 03/2021 w/ no new/worrisome concerns from their standpoint; last head/neck imaging was September 2020. She has chronic challenges swallowing and has to take pills slowly. She feels her swallowing is unchanged from a month or so 6 months ago Of note she takes calcitriol 0.5 mcgs twice daily as an outpatient in addition to 12.5 mg daily hydrochlorothiazide and 1500 mg calcium carbonate 3 times a day. Calcium supplements 1250 mg daily ordered bid but pt has refused half of these along with have of her rocaltrol doses. She has had no IV calcium supplementation so far but was started on Ca supplements. Her daughter tells me she has been giving some calcium carbonate to the patient since arrival. OF note, [facility] MRN for this pt is [id number], name on chart is Essence Blakely. Patient denies shortness of breath, fasciculations, trouble worsening with chewing or swallowing, vomiting or diarrhea since arrival, voiding concerns, rash current ambulation concerns. Tolerating p.o. but asks if we could split up her pills so that she does not take multiple ones all at once she endorses n ausea and is also tired of frequent needles/blood draws. Due to nausea, today is the first day and several days that she has taken her medications reliably Allergies Allergy/AdvReac Type Severity Reaction Status Date / Time Sulfa (Sulfonamide AdvReac Severe Anaphylaxis Verified 04/10/21 20:52 Antibiotics) Home Medications Medication Instructions Recorded Confirmed Type cyclobenzaprine 5 mg tablet 5 mg PO TID PRN 09/06/18 04/10/21 History latanoprost 0.005 % eye drops 1 drops OPB QPM 09/06/18 04/10/21 History (Xalatan) anastrozole 1 mg tablet 1 mg PO DAILY 12/27/19 04/10/21 History hydrochlorothiazide 25 mg tablet 12.5 mg PO DAILY #90 tab 07/25/20 04/10/21 Rx losartan 25 mg tablet 25 mg PO DAILY #90 tab 09/24/20 04/10/21 Rx dabigatran etexilate 150 mg 150 mg PO BID 09/25/20 04/10/21 History capsule (Pradaxa) levothyroxine 125 mcg tablet 125 mcg PO QAM 09/25/20 04/10/21 History calcitriol 0.5 mcg capsule 0.5 mcg PO BID #60 cap 09/27/20 04/10/21 Rx amoxicillin 875 mg-potassium 1 tab PO Q12 04/10/21 04/10/21 History clavulanate 125 mg tablet Patient History Medical History (Updated 04/13/21 @ 11:29 by Maira Guevara MD, PhD) Atrial fibrillation CVA (cerebral vascular accident) 2008 - Right Sided Weakness History of breast cancer Diagnosed 07/26/18 - Right Breast DCIS Hypertension Papillary thyroid carcinoma s/p 07/24 resection path [id number] s/p 09/18 radioactive iodine Postsurgical hypoparathyroidism Prediabetes Primary open angle glaucoma (POAG) of both eyes, mild stage Tobacco abuse Surgical History History of appendectomy 1989 History of hysterectomy 1987 History of left cataract surgery 2016 - Complex History of lumpectomy of right breast 08/17/18 History of thyroidectomy, [place] [facility] [place] w/ excision R parapharyngeal /retropharyngeal space lesion, selective R neck dissection, limited R esophageal wall r esection Family History Mother , Passed age 75 of "heart" No problems noted. Father , Passed age 91 of kidney failure No problems noted. Sister No problems noted. Sister No problems noted. Sister No problems noted. Sister No problems noted. Sister No problems noted. Sister No problems noted. Brother , Passed age 35 of "something in neck" not cancer - very sudden No problems noted. Brother , Passed age 20 at war No problems noted. Daughter No problems noted. Daughter No problems noted. Son No problems noted. Son No problems noted. Social History Smoking Status: Current every day smoker packs per day: 1; Years Smoked: 10; Number of Years Since Quit: 15; Second Hand Exposure: No; Do You Dip or Chew Tobacco: No; Hx Alcohol Use: No Hx Substance Use: No Preferred Language: Welsh Communication Ability: Effective Communication Tools: IPad Visual Impairment: Limited Hearing Ability: Normal Tie Sawyer Required: Yes Beliefs That Will Affect Care: None marital status: / Current Living Situation: Family Current Living Situation Comment: visiting for 4 months current occupational status: retired current occupation: Retired Teacher Other Information That Helps Us Care for You: No Feels Safe at Home: Yes Safety Concerns: Feels Safe At This Time caffeine: Yes (1/2 cup of hebrew coffee/day ) during the past year weight has: remained stable Dental Care, Regularly: Yes Assistive Devices: None Review of Systems Review of Systems: All systems reviewed & are unremarkable except as noted in HPI & below Physical Exam Constitutional: well developed and well nourished; no acute distress (Sitting on the side of the bed on room air) Eyes: EOM intact bilaterally ENMT: Ears: no external ear abnormality Nose: no external nose abnormality Mouth: + dry oral mucous membranes Neck: no nuchal rigidity Respiratory: normal respiratory effort Auscultation: + diminished lung sounds Cardiovascular: Rate/Rhythm: + irregularly irregular Extremities: no edema Gastrointestinal (Abdomen): Inspection/Auscultation: normal bowel sounds Percussion/Palpation: abdomen soft; abdomen nontender Musculoskeletal: Extremities: strength 5/5 throughout Skin: no rashes, warm and dry Neurologic: simon, fluent speech, no tremor; no fasciculations Psychiatric: A+Ox3, euthymic affect Results & Data ([facility]) Vital Signs (Past 12 Hours) Vital Signs Temp Pulse Resp BP Pulse Ox 04/13/21 08:06 36.5 C 84 16 128/78 92 Laboratory Results 04/13/21 05:58 04/13/21 07:19 Calcium levels as above; mag 1.9 Diagnostic Findings Abd/pelvis CT 04/2021 Lung bases: The heart is mildly enlarged and without pericardial effusion. Evaluation of the lung bases is degraded by motion artifact. No airspace consolidation or pleural effusion is identified. Liver: The unenhanced liver is normal in size, contour, and attenuation. There is no intrahepatic biliary ductal dilatation. Gallbladder: Unremarkable. Spleen: Normal in size and attenuation. There are scattered capsular calc ifications. Pancreas: The unenhanced pancreas is grossly unremarkable. Adrenal glands: Unremarkable. Kidneys: The unenhanced kidneys demonstrate cortical atrophy and are without hydronephrosis. There are no renal calculi identified. There is no evidence of contour deforming renal mass lesion. A 1.6 cm renal sinus cyst is seen on the right. Abdominal vasculature: The abdominal aorta is normal in course and caliber noting moderate atherosclerotic calcification. Bowel: There is no bowel obstruction. There is underdistention versus mild wall thickening of the colon. This extends from the ascending colon to the descending colon. The appendix is not visualized. Peritoneum: There is no intraperitoneal free air or abdominal ascites. There is a fat-containing umbilical hernia. Lymphadenopathy: None. Pelvic viscera: The bladder is normal as visualized. The uterus is surgically absent. No adnexal lesion is seen. Skeletal structures: The skeletal structures are osteopenic. There is moderate lumbosacral spondylosis. No lytic or blastic lesions are seen. Arthritic change is seen in the hips. IMPRESSION: 1. Suboptimal examination without oral and IV contrast. There is also motion art ifact. 2. Question underdistention orbits: versus a mild nonspecific colitis. Clinical correlation will be required. 3. No bowel obstruction is identified.
[2021-04-13] MEDS ORDERED: CALCIUM GLUCONATE 10% 3,000 MG in 0.9 % SODIUM CHLORIDE 100 ML IV ONE ×2 (12:00→20:45)
[2021-04-13] MEDS: PANTOprazole 40 MG in SYRINGE 0 ML IV SCH (12:26)
--- NOTE | 2021-04-13 15:29 | Hospitalist Progress Note ---
Date of Service April 13, 2021 Assessment & Plan (1) Acute colitis: Plan: ASSESSMENT AND PLAN: This is a 75-year-old female who presents with lot of nausea, vomiting, diarrhea. 1. Nausea, vomiting, diarrhea secondary to Shigella/EIEC Colitis - Colitis on preliminary ct abdomen. - stool PCR (+) Shigella/EIEC sensitivities sent to [place] [facility] - Cipro BID PO Day 3/ IV fluids--> d/c clear liquids--> advance to regular Coronavirus 0C43 Acute Bronchitis - Covid screen PCR negative - repeat on Wednesday, airborne Isolation for now - on empiric Doxycycline for possible Acute Bacterial Bronchitis Nebs Incentive Spirometer - monitor closely - overall better off oxygen - finish Doxycycline to complete 7 days Low back pain - likely muscular etiology - lidoderm patch, warm compress 2. History of atrial fibrillation: Not on any rate control medication, but on Pradaxa, which will be continued. 3. Hypertension: Holding hydrochlorothiazide hold Losartan 4. Glaucoma: Continue home meds 5. History of Thyroid CA: Status post complete thyroidectomy. -- Ionized Ca 0.8 -- Nephro consulted IV Ca Gluc monitor BMP, ionized Ca q6h 6. History of breast cancer: Partial right mastectomy, on anastrozole. 7. Deep venous thrombosis prophylaxis. Currently on Pradaxa. DISPOSITION: Closely monitor in the medical floor. PT/OT prior to discharge. Social service to help with discharge planning. plan of care discussed with patient and her daughter in detail and at length all questions answered they are understanding, agreeable, comfortable with the plan of care Admission and Anticipated Discharge Date Admission Date: April 11, 2021 Subjective ff up for diarrhea, coronavirus 0c43, etc seen resting in bed, sitting up daughter at bedside providing translation feels better overall no abdominal pain, nausea, diarrhea tolerating diet well no cough, dyspnea, etc no other symptoms Review of Systems Review of Systems: all noted and negative except for above Physical Exam Physical Exam: General- oriented x 3, not in distress, speaks in sentences with no effort or accessory muscle use Eyes- anicteric Neck- no JVD Lungs- clear BS BL Heart- normal rate, regular rhythm; no murmurs Abdomen- normal bowel sounds, nondistended, soft, nontender Extremities- no pretibial edema, no calf tenderness Neuro- alert, oriented x 3; no gross focal neurologic deficits Skin- warm & dry Results & Data Results & Data ([facility]) Vital Signs (Past 12 Hours) Vital Signs Temp Pulse Resp BP Pulse Ox 04/13/21 08:06 36.5 C 84 16 128/78 92 all noted and reviewed including below
[2021-04-13 18:53] LABS: Calcium 7.2 mg/dl (8.5-10.1); Creatinine Clr Calc Pharmacy 47.5 ml/min; Est GFR (African American) 60.3 ml/min
[2021-04-13] MEDS: LATANOPROST 0.005% OP SOLN 2.5 ML BTL OPB SCH (20:48)
--- NOTE | 2021-04-13 22:03 | Electrocardiogram Report ---
Test Reason : Blood Pressure : / mmHG Vent. Rate : 069 BPM Atrial Rate : 441 BPM P-R Int : 000 ms QRS Dur : 130 ms QT Int : 454 ms P-R-T Axes : 000 017 -30 degrees QTc Int : 486 ms Atrial fibrillation Right bundle branch block Abnormal ECG When compared with ECG of 10-APR-2021 21:23, T wave inversion less evident in Inferior leads Nonspecific T wave abnormality has replaced inverted T waves in Anterolateral leads Confirmed by Micheal Hargrove ([id number]) on 04/13/2021 10:03:44 PM Referred By: REFERRED SELF Confirmed By:Micheal Hargrove
[2021-04-14 02:43] LABS: BUN Creatinine Ratio 19.1 (10-20); Calcium 7.3 mg/dl (8.5-10.1); Creatinine Clr Calc Pharmacy 59.9 ml/min; Est GFR (African American) 79.9 ml/min; Potassium 3.4 mmol/L (3.5-5.1)
[2021-04-14] MEDS: LEVOTHYROXINE SODIUM 125 MCG TABLET PO SCH (06:07)
[2021-04-14] MEDS: DABIGATRAN ETEXILATE 75 MG CAP PO SCH ×2 (08:53→21:15)
[2021-04-14] MEDS: LOSARTAN POTASSIUM 25 MG TAB PO SCH (08:53)
[2021-04-14] MEDS: ANASTROZOLE 1 MG TAB PO SCH (08:54)
[2021-04-14] MEDS: CALCITRIOL 0.25 MCG CAPSULE PO SCH ×2 (08:54→21:15)
[2021-04-14] MEDS: CIPROFLOXACIN 500 MG TAB PO SCH (08:54)
[2021-04-14] MEDS: LIDOCAINE 5% 1 PATCH TD SCH (08:56)
[2021-04-14 11:00] LABS: Basophils # (auto) 0.02 K/uL (0-0.2); Basophils % (auto) 0.2 %; Eosinophils # (auto) 0.16 K/uL (0-0.5); Eosinophils % (auto) 1.6 %; Hematocrit (blood only) 36.7 % (37-47); Hemoglobin 12.1 g/dL (12.0-16.0); Immature Granulocytes # (auto) 0.11 K/uL (0.00-0.02); Immature Granulocytes % (auto) 1.1 %; Lymphocytes # (auto) 2.15 K/uL (1.2-3.4); Lymphocytes % (auto) 21.8 %; Mean Corpuscular Hemoglobin 26.2 pg (25-34); Mean Corpuscular Volume 79.4 fL (80-100); Mean Platelet Volume 11.4 fL (7.4-10.4); Monocytes # (auto) 0.66 K/uL (0.11-0.59); Monocytes % (auto) 6.7 %; Neutrophils # (auto) 6.75 K/uL (1.4-6.5); Neutrophils % (auto) 68.6 %; Platelet Count 128 K/uL (130-400); RDW Coefficient of Variation 13.4 % (11.5-14.5); RDW Standard Deviation 38.9 fL (36.4-46.3); Red Blood Count 4.62 M/uL (4.2-5.4); White Blood Count 9.85 K/uL (4.8-10.8)
[2021-04-14] MEDS ORDERED: CALCIUM GLUCONATE 10% 3,000 MG in 0.9 % SODIUM CHLORIDE 100 ML IV ONE (11:45)
[2021-04-14 11:57] LABS: BUN Creatinine Ratio 15.5 (10-20); Calcium 7.2 mg/dl (8.5-10.1); Creatinine Clr Calc Pharmacy 60.7 ml/min; Est GFR (African American) 78.8 ml/min; Magnesium 1.7 mg/dl (1.8-2.4); Potassium 3.7 mmol/L (3.5-5.1)
[2021-04-14 11:58] LABS: Phosphorus 2.9 mg/dl (2.5-4.9)
[2021-04-14] MEDS: DOXYCYCLINE HYCLATE 100 MG CAP PO SCH ×2 (11:59→21:15)
--- NOTE | 2021-04-14 13:39 | Hospitalist Progress Note ---
Date of Service April 14, 2021 Assessment & Plan (1) Acute colitis: Plan: ASSESSMENT AND PLAN: This is a 75-year-old female who presents with lot of nausea, vomiting, diarrhea. 1. Nausea, vomiting, diarrhea secondary to Shigella/EIEC Colitis - Colitis on preliminary ct abdomen. - stool PCR (+) Shigella/EIEC sensitivities sent to [place] [facility] - Cipro BID PO Day 3/ IV fluids--> d/c clear liquids--> advanced to regular - resolved Coronavirus 0C43 Acute Bronchitis - Covid screen PCR negative - repeat on Wednesday, airborne Isolation for now - on empiric Doxycycline for possible Acute Bacterial Bronchitis Nebs Incentive Spirometer - monitor closely - overall better off oxygen - finish Doxycycline to complete 7 days Low back pain - likely muscular etiology - lidoderm patch, warm compress 2. History of atrial fibrillation: Not on any rate control medication, but on Pradaxa, which will be continued. 3. Hypertension: Holding hydrochlorothiazide resume Losartan 4. Glaucoma: Continue home meds 5. History of Thyroid CA: Status post complete thyroidectomy. -- Ionized Ca 0.9 -- Nephro consulted IV Ca Gluc 3g today Oscal TID Calcitriol BID - Nephro on board repeat Ca tomorrow replace Mg 6. History of breast cancer: Partial right mastectomy, on anastrozole. 7. Deep venous thrombosis prophylaxis. Currently on Pradaxa. DISPOSITION: Closely monitor in the medical floor. PT/OT prior to discharge. Social service to help with discharge planning. plan of care discussed with patient and her daughter in detail and at length all questions answered they are understanding, agreeable, comfortable with the plan of care Admission and Anticipated Discharge Date Admission Date: April 11, 2021 Subjective ff up for diarrhea, hypocalcemia, etc seen resting in bedside chair, comfortable daughter at bedside proving interpretation feeling better overall no URTI symptoms no diarrhea, abdominal pain tolerating diet well has some difficulty swallowing big pills no other symptoms Review of Systems Review of Systems: all noted and negative except for above Physical Exam Physical Exam: General- oriented x 3, not in distress, speaks in sentences with no effort or accessory muscle use Eyes- anicteric Neck- no JVD Lungs- clear breath sounds BL Heart- normal rate, regular rhythm; no murmurs Abdomen- normal bowel sounds, nondistended, soft, nontender Extremities- no pretibial edema, no calf tenderness Neuro- alert, oriented x 3; no gross focal neurologic deficits Skin- warm & dry Results & Data Results & Data ([facility]) Vital Signs (Past 12 Hours) Vital Signs Temp Pulse Pulse Resp BP Pulse Ox 04/14/21 11:41 36.7 C 60 20 149/70 H 97 04/14/21 07:31 36.8 C 71 20 143/85 H 90 04/14/21 07:00 61 04/14/21 03:42 36.7 C 63 16 114/77 91 all noted and reviewed including below
[2021-04-14] MEDS: MAGNESIUM SULFATE / D5W 1 GM/100 ML BAG IV SCH ×2 (14:19→16:27)
[2021-04-14] MEDS: CALCIUM CARBONATE 1250MG TAB PO SCH ×2 (16:26→22:14)
[2021-04-14] MEDS: LATANOPROST 0.005% OP SOLN 2.5 ML BTL OPB SCH (21:15)
[2021-04-15] MEDS: LEVOTHYROXINE SODIUM 125 MCG TABLET PO SCH (06:09)
[2021-04-15 06:19] LABS: Basophils # (auto) 0.03 K/uL (0-0.2); Basophils % (auto) 0.4 %; Eosinophils % (auto) 2.3 %; Hematocrit (blood only) 36.8 % (37-47); Hemoglobin 12.1 g/dL (12.0-16.0); Immature Granulocytes # (auto) 0.17 K/uL (0.00-0.02); Lymphocytes # (auto) 2.45 K/uL (1.2-3.4); Lymphocytes % (auto) 28.7 %; Mean Corpuscular Hemoglobin 26.2 pg (25-34); Mean Corpuscular Hgb Conc 32.9 g/dL (32-36); Mean Corpuscular Volume 79.7 fL (80-100); Mean Platelet Volume 11.2 fL (7.4-10.4); Monocytes # (auto) 0.66 K/uL (0.11-0.59); Monocytes % (auto) 7.7 %; Neutrophils # (auto) 5.03 K/uL (1.4-6.5); Neutrophils % (auto) 58.9 %; Platelet Count 161 K/uL (130-400); RDW Coefficient of Variation 13.4 % (11.5-14.5); RDW Standard Deviation 38.3 fL (36.4-46.3); Red Blood Count 4.62 M/uL (4.2-5.4); White Blood Count 8.54 K/uL (4.8-10.8)
[2021-04-15 06:52] LABS: Calcium 8.2 mg/dl (8.5-10.1); Creatinine Clr Calc Pharmacy 58.3 ml/min; Est GFR (African American) 75.5 ml/min; Est GFR (Non-African American) 65.2 ml/min; Magnesium 2.2 mg/dl (1.8-2.4); Potassium 3.8 mmol/L (3.5-5.1)
[2021-04-15] MEDS: LIDOCAINE 5% 1 PATCH TD SCH (08:58)
[2021-04-15] MEDS: ANASTROZOLE 1 MG TAB PO SCH (08:59)
[2021-04-15] MEDS: LOSARTAN POTASSIUM 25 MG TAB PO SCH (09:00)
[2021-04-15] MEDS: DABIGATRAN ETEXILATE 75 MG CAP PO SCH (09:01)
[2021-04-15] MEDS: DOXYCYCLINE HYCLATE 100 MG CAP PO SCH (09:01)
--- NOTE | 2021-04-15 09:58 | Nephrology Progress Note ---
Date of Service April 15, 2021 Assessment & Plan Admission and Anticipated Discharge Date Admission Date: April 11, 2021 Subjective Assessment & Plan (1) Hypocalcemia: from post surgical hypoparathyroidism historically and now w/ diminished ability to take po; can be challenging to replenish calcium stores for such pts --continue calcitriol current dose - -Ca++ did go up nicely and also the mag from yesterday. mag normal but Ca still low but better --Continue Oral Calcium--She prefers Calcium Carbonate 750mg pill--use 2 tabs qid. --Also mag 400 daily or Slow mag 64 bid for maintenance for low ca++. --On Doxy so that does affect GI absorption of Ca and Mag. Check with pharmacy. --She wants to get Discharged home today and [facility]. --She will need to have BMP done later this week and results to go to Dr Guevara. Also need EKG today to check Qtc. Care coordinated Review of Systems--Somewhat better GI symptoms Review of Systems: All systems reviewed & are unremarkable except as noted in HPI & below Physical Exam Constitutional: well developed and well nourished; no acute distress (Sitting on the side of the bed on room air) Eyes: EOM intact bilaterally ENMT: Ears: no external ear abnormality Nose: no external nose abnormality Mouth: + dry oral mucous membranes Neck: no nuchal rigidity Respiratory: normal respiratory effort Auscultation: + diminished lung sounds Cardiovascular: Rate/Rhythm: + irregularly irregular Extremities: no edema Gastrointestinal (Abdomen): Inspection/Auscultation: normal bowel sounds Percussion/Palpation: abdomen soft; abdomen nontender Musculoskeletal: Extremities: strength 5/5 throughout Skin: no rashes, warm and dry Neurologic: simon, fluent speech, no tremor; no fasciculations Psychiatric: A+Ox3, euthymic affect Results & Data ([facility]) Vital Signs (Past 12 Hours) Vital Signs Temp Pulse Pulse Resp BP Pulse Ox 04/15/21 07:51 36.9 C 85 18 166/83 H 93 04/15/21 04:00 36.8 C 70 18 136/85 94 04/15/21 01:24 66 04/14/21 23:12 36.6 C 80 18 170/91 H 97
[2021-04-15 11:28] VITALS: PULSE 67; TEMP 97.9; O2SAT 97
--- NOTE | 2021-04-15 11:28 | Hospitalist Progress Note ---
Date of Service April 15, 2021 Assessment & Plan (1) Acute colitis: Plan: ASSESSMENT AND PLAN: This is a 75-year-old female who presents with lot of nausea, vomiting, diarrhea. 1. Nausea, vomiting, diarrhea secondary to Shigella/EIEC Colitis - Colitis on ct abdomen. - stool PCR (+) Shigella/EIEC sensitivities sent to [place] [facility] - Cipro BID PO Day 3/3 - resolved Coronavirus 0C43 Acute Bronchitis - Covid screen PCR negative x 2 - given Doxycycline Nebs Incentive Spirometer - monitor closely - overall better off oxygen - completed 5 days of Doxycycline Low back pain - likely muscular etiology - lidoderm patch, warm compress 2. History of atrial fibrillation: Not on any rate control medication, but on Pradaxa 3. Hypertension: continue hydrochlorothiazide and Losartan 4. Glaucoma: Continue home meds 5. History of Thyroid CA: Status post complete thyroidectomy. -- Ionized Ca 0.9 -- Nephro consulted given IV Ca Gluc 3g Oscal TID Calcitriol BID - Nephro on board discharge recommendations: Tums 750mg 2 tabs QID Slow-Mag 64 mg BID repeat ionized Ca and Mg on ff u with PCP 04/17/21 6. History of breast cancer: Partial right mastectomy, on anastrozole. 7. Deep venous thrombosis prophylaxis. Currently on Pradaxa. DISPOSITION:d/c home ff up with PCP on 04/17/21 plan of care discussed with patient and her daughter in detail and at length all questions answered they are understanding, agreeable, comfortable with the plan of care Admission and Anticipated Discharge Date Admission Date: April 11, 2021 Subjective ff up for diarrhea, hypocalcemia, etc seen sitting up in bed, comfortable in good spirits daughter at bedside assisting states she feels fine overall denies cough, shortness of breath no abdominal pain, diarrhea no leg weakness/numbness, etc no other symptoms states she is ready and would like to be discharged Review of Systems Review of Systems: all noted and negative except for above Physical Exam Physical Exam: General- oriented x 3, not in distress, speaks in sentences with no effort or accessory muscle use Eyes- anicteric Neck- no JVD Lungs- clear BS BL Heart- normal rate, regular rhythm; no murmurs Abdomen- normal bowel sounds, nondistended, soft, nontender Extremities- no pretibial edema, no calf tenderness Neuro- alert, oriented x 3; no gross focal neurologic deficits Skin- warm & dry Results & Data Results & Data ([facility]) Vital Signs (Past 12 Hours) Vital Signs Temp Pulse Pulse Resp BP Pulse Ox 04/15/21 07:51 36.9 C 85 18 166/83 H 93 04/15/21 04:00 36.8 C 70 18 136/85 94 04/15/21 01:24 66 all noted and reviewed including below
[2021-04-15] MEDS: CALCITRIOL 0.25 MCG CAPSULE PO SCH (11:29)
[2021-04-15] MEDS: CALCIUM CARBONATE 1250MG TAB PO SCH (11:29)
[2021-04-15 11:53] VITALS: BP 109/20
[2021-04-15] MEDS ORDERED: MAGNESIUM CHLORIDE 64MG DELAYED REL TAB PO SCH (21:00)
--- NOTE | 2021-04-16 15:33 | Discharge Summary ---
Date of Service April 16, 2021 Admission HPI Per Admitting Provider HISTORY OF PRESENT ILLNESS: A 75-year-old female with past medical history significant for chronic atrial fibrillation; prediabetes; hypertension; primary open angle glaucoma of both eyes, mild stage; muscular rigidity and spasms, progressive; history of CVA; history of breast cancer; history of thyroid cancer, status post complete thyroidectomy, who lives with her son, was brought in because of nausea, vomiting, and diarrhea. The patient seems to have seen the family doctor a couple of days ago and at that time complained of nasal drip and cough. No fever, no chills. Going on for 2 weeks and for the last 2 days, has some fever, and productive cough with sputum and she was prescribed Augmentin for possible bronchitis and acute pharyngitis. Respiratory panel was ordered and the results showed coronavirus SARS-CoV-2 by PCR was negative, but coronavirus OC43 was positive. Rest of the panel was negative, but today in the morning, she started with nausea, vomiting and diarrhea. She could not eat anything. She is feeling weak and tired, spiking temperature and was brought to the hospital here. The patient is from [place], cannot speak much Japanese. Daughter is in the room, who is translating. The patient has lot of sore throat, some cough and nasal drainage. No chest pain, no shortness of breath, a lot of nausea, vomiting and some abdominal discomfort and diarrhea. Normal bladder movements. No swelling in the legs. Currently, the patient is sleeping. All the history was got from the daughter.Daughter supposed to stay with the patient. Admission Exam (Per Admitting) Constitutional GENERAL: The patient is drowsy, but arousable, not in acute distress. VITAL SIGNS: Temperature 39.5, pulse 88, respiratory rate 16, blood pressure 128/69, oxygen 92% on room air. HEENT: Pupils equal, round and reactive to light. Oral mucosa dry. NECK: No JVD, no neck masses. CARDIOVASCULAR: S1 and S2 heard. Regular rate and rhythm. No murmur, no gallop. RESPIRATORY SYSTEM: Normal AP diameter. No accessory muscle use. No wheezing, no crackles. ABDOMEN: Soft, bowel sounds present. Mild abdominal discomfort present. No distention. CENTRAL NERVOUS SYSTEM: Alert and awake. Obeys simple commands. Moves extremities. EXTREMITIES: No edema, no erythema. Discharge Data Consultations 01/06/22 22:44 ED Decision to Admit Stat 04/13/21 10:47 Consult Nephrology Routine Procedures Performed CT SCAN OF THE ABDOMEN AND PELVIS WITHOUT IV CONTRAST CLINICAL HISTORY: Vomiting. COMPARISON STUDY: No priors. TECHNIQUE: CT scan of the abdomen and pelvis is performed from the lung bases to the proximal femora. Images are reviewed in the axial, sagittal, and coronal planes. IV contrast was not administered for this examination. Note that the examination was performed in suboptimal fashion without oral and IV contrast. A dose lowering technique was utilized adhering to the principles of ALARA. CT DOSE: 505.34 mGy.cm FINDINGS: Lung bases: The heart is mildly enlarged and without pericardial effusion. Evaluation of the lung bases is degraded by motion artifact. No airspace consolidation or pleural effusion is identified. Liver: The unenhanced liver is normal in size, contour, and attenuation. There is no intrahepatic biliary ductal dilatation. Gallbladder: Unremarkable. Spleen: Normal in size and attenuation. There are scattered capsular calcifications. Pancreas: The unenhanced pancreas is grossly unremarkable. Adrenal glands: Unremarkable. Kidneys: The unenhanced kidneys demonstrate cortical atrophy and are without hydronephrosis. There are no renal calculi identified. There is no evidence of contour deforming renal mass lesion. A 1.6 cm renal sinus cyst is seen on the right. Abdominal vasculature: The abdominal aorta is normal in course and caliber noting moderate atherosclerotic calcification. Bowel: There is no bowel obstruction. There is underdistention versus mild wall thickening of the colon. This extends from the ascending colon to the descending colon. The appendix is not visualized. Peritoneum: There is no intraperitoneal free air or abdominal ascites. There is a fat-containing umbilical hernia. Lymphadenopathy: None. Pelvic viscera: The bladder is normal as visualized. The uterus is surgically absent. No adnexal lesion is seen. Skeletal structures: The skeletal structures are osteopenic. There is moderate lumbosacral spondylosis. No lytic or blastic lesions are seen. Arthritic change is seen in the hips. IMPRESSION: 1. Suboptimal examination without oral and IV contrast. There is also motion artifact. 2. Question underdistention orbits: versus a mild nonspecific colitis. Clinical correlation will be required. 3. No bowel obstruction is identified. ACT 112: Negative or not required by law. Electronically signed by: Adalberto Salas M.D. 04/11/2021 7:24 AM Hospital Course (1) Acute colitis: ASSESSMENT AND PLAN: This is a 75-year-old female who presents with lot of nausea, vomiting, diarrhea. 1. Nausea, vomiting, diarrhea secondary to Shigella/EIEC Colitis - Colitis on ct abdomen. - stool PCR (+) Shigella/EIEC sensitivities sent to [place] [facility] - given Cipro BID PO Day 3/ - resolved Coronavirus 0C43 Acute Bronchitis - Covid screen PCR negative x 2 - given Doxycycline Nebs Incentive Spirometer - monitor closely - overall better off oxygen - completed 5 days of Doxycycline Low back pain - likely muscular etiology - lidoderm patch, warm compress 2. History of atrial fibrillation: Not on any rate control medication, but on Pradaxa 3. Hypertension: continue hydrochlorothiazide and Losartan 4. Glaucoma: Continue home meds 5. History of Thyroid CA: Status post complete thyroidectomy. HypoCalcemia -- Ionized Ca 0.9 -- Nephro consulted given IV Ca Gluc 3g Oscal TID Calcitriol BID - Nephro on board discharge recommendations: Tums 750mg 2 tabs QID Slow-Mag 64 mg BID repeat ionized Ca and Mg on ff u with PCP 04/17/21 6. History of breast cancer: Partial right mastectomy, on anastrozole. 7. Deep venous thrombosis prophylaxis. Currently on Pradaxa. DISPOSITION:d/c home ff up with PCP on 04/17/21 plan of care discussed with patient and her daughter in detail and at length all questions answered they are understanding, agreeable, comfortable with the plan of care
== END 2021-04-15 14:58 | disposition home or self-care (01) | DRG 372 ==
LOC: ED 19:19 → 3E 04-11 00:43 → 2N 04-13 14:53